=== PATIENT | male | born 1970 | race Caucasian/White ===

== ENCOUNTER 2019-09-08 15:27 | Observation (INO) ==
[2019-09-08] MEDS ORDERED: FAMOTIDINE 20MG IV PUSH 20 MG/5 ML SYR IV STA (15:50)
[2019-09-08] MEDS ORDERED: DEXAMETHASONE **PF** INJ 10 MG/ML VIAL IV ONE (15:50)
--- NOTE | 2019-09-08 15:50 | Emergency Department Note ---
History of Present Illness General Chief complaint: Allergic Reaction Stated complaint: ALLERGIC REACTION,DOC REFERRED Time Seen by Provider: 09/08/19 15:38 History of Present Illness Maximum Pain Intensity: 8 This is a 49-year-old male that presents to the emergency department via private vehicle with complaints of "allergic reaction, Dr. schroeder". The patient states that he was referred here by his family doctor over concern for lip swelling. Patient notes that he has been experiencing intermittent lip edema several times now and it usually goes away with Marian. He states that today was persistent. He also takes lisinopril but this is not new. He notes the only change in medication was discontinuing BuSpar as this was felt to have may be contributing to a fall he sustained a few weeks ago. He denies any other complaints at this time. No chest pain, shortness of breath, fevers or chills. He denies any rashes or trouble breathing. Trouble swallowing. He denies f eeling any swelling inside the mouth. No other changes in behavior, appetite or medicines. Home Medications Home Medications Medication Instructions Recorded Confirmed Type dextroamphetamine-amphetamine 30 30 mg PO BID tab 08/30/18 09/08/19 History mg tablet lisinopril 40 mg tablet 40 mg PO DAILY 08/30/18 09/08/19 History propranolol 60 mg capsule,24 60 mg PO BID cap 08/30/18 09/08/19 History hr,extended release tramadol 50 mg tablet 50 mg PO TID PRN tab 08/30/18 09/08/19 History sumatriptan succinate 50 mg tablet See Rx Instructions .ROUTE 03/20/19 09/08/19 Rx .COMPLEX #9 tablet clonazepam 2 mg tablet 1 mg PO TID PRN tab 04/19/19 09/08/19 History fexofenadine 180 mg tablet 180 mg PO HS PRN 04/19/19 09/08/19 History clomipramine 75 mg capsule 150 mg PO HS cap 07/11/19 09/08/19 History gabapentin 600 mg tablet 600 mg PO TID #90 tab 08/04/19 09/08/19 Rx bupropion HCl 150 mg PO BID 09/08/19 09/08/19 History clomipramine 50 mg PO BID 09/08/19 09/08/19 History esomeprazole magnesium [Nexium 20 mg PO DAILY 09/08/19 09/08/19 History 24HR] Allergies Allergy/AdvReac Type Severity Reaction Status Date / Time aspirin Allergy Severe Anaphylaxis Verified 09/08/19 16:50 diphenhydramine Allergy Severe Anaphylaxis Verified 09/08/19 16:50 [From Benadryl] buspirone [From BuSpar] AdvReac Severe Verified 09/08/19 16:50 anxiety Past Med/Surg History Medical History ADHD (attention deficit hyperactivity disorder) (Chronic) Anxiety (Chronic) Arthritis, rheumatoid (Chronic) Depression (Chronic) GERD (gastroesophageal reflux disease) (Chronic) HTN (hypertension) (Chronic) Lumbar pain (Chronic) Migraine headache (Chronic) OCD (obsessive compulsive disorder) (Chronic) Surgical History Hx of appendectomy (Chronic) Social History Preferred Language: [place] Communication Ability: Effective Visual Impairment: No Limitations Hearing Ability: Normal Brush Head Maker Required: No Beliefs That Will Affect Care: None marital status: single Current Living Situation: Family current occupational status: unemployed Feels Safe at Home: Yes Smoking Status: Former smoker Hx Alcohol Use: No Hx Substance Use: No Review of Systems A total of 10 systems reviewed and were otherwise negative Physical Exam Vital Signs Vital Signs - 24 hr 09/08/19 15:32 09/08/19 15:50 09/08/19 16:30 Temperature 37 C Temperature Source Oral Pulse Rate 88 79 Pulse Rate from SpO2 Sensor Pulse Rhythm Regular Pulse Strength Normal Respiratory Rate 18 17 Respiratory Effort / Characteristics Non-Labored Spontaneous Respiratory Depth Normal Respiratory Pattern Regular Blood Pressure 109/68 109/59 L Blood Pressure Mean 81 87 Blood Pressure Position Sitting Pulse Oximetry 94 Oxygen Delivery Method Room Air Room Air Sepsis Recent Fever Within 48 Hours No Sepsis New/Unexplained Change in Mental Status No Sepsis Action Taken by Nursing No Action Required 09/08/19 17:00 09/08/19 17:30 09/08/19 18:00 Temperature Temperature Source Pulse Rate 81 77 73 Pulse Rate from SpO2 Sensor Pulse Rhythm Pulse Strength Respiratory Rate 24 18 20 Respiratory Effort / Characteristics Respiratory Depth Respiratory Pattern Blood Pressure 105/61 96/59 L 103/66 Blood Pressure Mean 67 69 71 Blood Pressure Position Pulse Oximetry 92 92 92 Oxygen Delivery Method Room Air Room Air Sepsis Recent Fever Within 48 Hours Sepsis New/Unexplained Change in Mental Status Sepsis Action Taken by Nursing 09/08/19 18:30 09/08/19 19:00 09/08/19 19:30 Temperature Temperature Source Pulse Rate 75 73 72 Pulse Rate from SpO2 Sensor 78 73 71 Pulse Rhythm Pulse Strength Respiratory Rate 22 24 23 Respiratory Effort / Characteristics Respiratory Depth Respiratory Pattern Blood Pressure 126/72 112/74 116/77 Blood Pressure Mean 78 79 87 Blood Pressure Position Pulse Oximetry 91 93 93 Oxygen Delivery Method Room Air Room Air Room Air Sepsis Recent Fever Within 48 Hours Sepsis New/Unexplained Change in Mental Status Sepsis Action Taken by Nursing 09/08/19 20:00 09/08/19 20:30 09/08/19 21:00 Temperature Temperature Source Pulse Rate 73 84 88 Pulse Rate from SpO2 Sensor Pulse Rhythm Pulse Strength Respiratory Rate 16 27 H 22 Respiratory Effort / Characteristics Respiratory Depth Respiratory Pattern Blood Pressure 126/85 130/88 119/73 Blood Pressure Mean 98 102 86 Blood Pressure Position Pulse Oximetry 93 Oxygen Delivery Method Room Air Sepsis Recent Fever Within 48 Hours Sepsis New/Unexplained Change in Mental Status Sepsis Action Taken by Nursing 09/08/19 21:30 09/08/19 22:00 09/08/19 22:30 Temperature Temperature Source Pulse Rate 89 82 79 Pulse Rate from SpO2 Sensor Pulse Rhythm Pulse Strength Respiratory Rate 14 21 22 Respiratory Effort / Characteristics Respiratory Depth Respiratory Pattern Blood Pressure 109/71 100/58 L Blood Pressure Mean 75 76 Blood Pressure Position Pulse Oximetry 93 Oxygen Delivery Method Room Air Sepsis Recent Fever Within 48 Hours Sepsis New/Unexplained Change in Mental Status Sepsis Action Taken by Nursing 09/08/19 23:00 Temperature Temperature Source Pulse Rate 83 Pulse Rate from SpO2 Sensor Pulse Rhythm Pulse Strength Respiratory Rate 20 Respiratory Effort / Characteristics Respiratory Depth Respiratory Pattern Blood Pressure 101/57 L Blood Pressure Mean 71 Blood Pressure Position Pulse Oximetry Oxygen Delivery Method Sepsis Recent Fever Within 48 Hours Sepsis New/Unexplained Change in Mental Status Sepsis Action Taken by Nursing VITAL SIGNS - Vital signs and nursing notes were reviewed. Stable and afebrile. GENERAL -49-year-old male appearing his stated age who is in no acute distress. Communicates well with provider and answers questions appropriately. SKIN - Without rashes. There is some edema noted to the patient's left lower lip otherwise no rashes. No other areas of edema. HEAD - NC/AT. EYES - PERRL with EOMI bilaterally. Sclera anicteric. EARS - No deformities of external structures noted on gross examination bilaterally. NOSE - Midline and without cyanosis. No epistaxis or purulent drainage noted. MOUTH/OROPHARYNX - Without perioral cyanosis. Lip edema left lower lip. NECK - Neck with FROM. Supple to palpation. No nuchal rigidity. LUNGS - Chest wall symmetric without accessory muscle use, intercostals retractions, or central cyanosis. Normal vesicular breath sounds CTA B/L. No w heezes, rales, or rhonchi appreciated. CARDIAC - RRR with S1/S2. No murmur, rubs, or gallops appreciated. ABDOMEN - Abdominal contour normal. Without pulsations or visible masses. BS normoactive all four quadrants. No tenderness, palpable masses, hepatosplenomegaly, or ascites noted. EXTREMITIES - No clubbing or peripheral cyanosis. No pretibial edema present. +5/5 strength noted in UE/LE bilaterally. NEUROLOGIC - Cranial nerves II through XII grossly intact. PSYCH - A&O, and cooperates fully with examiner. Pt is very pleasant and interacts well with examiner. Course Administered Medications Discontinued Medications Dexamethasone Sodium Phosphate (Decadron Pf) 10 mg IV NOW ONE Stop: 09/08/19 15:51 Last Admin: 09/08/19 16:12 Dose: 10 mg Documented by: [id number] Famotidine (Pepcid 20mg Iv Push) 20 mg in 5 mls @ 2.5 mls/min IV NOW STA Stop: 09/08/19 15:51 Last Admin: 09/08/19 16:12 Dose: 2.5 mls/min Documented by: [id number] Sodium Chloride (Nss 1000ml) 1,000 mls @ 250 mls/hr IV .Q4H JOLENE Stop: 09/08/19 23:29 Last Admin: 09/08/19 19:25 Dose: 250 mls/hr Documented by: [id number] Medical Decision Making Laboratory Data Result diagrams: 09/08/19 16:06 09/08/19 16:06 Lab Results 09/08/19 09/08/19 09/08/19 Range/Units 16:06 16:06 16:06 WBC 10.08 (4.8-10.8) K/uL RBC 4.45 L (4.7-6.1) M/uL Hgb 13.7 L (14.0-18.0) g/dL Hct 40.3 L (42-52) % MCV 90.6 (80-100) fL MCH 30.8 (25-34) pg MCHC 34.0 (32-36) g/dL RDW Std Deviation 48.1 H (36.4-46.3) fL RDW Coeff of Charlie 14.5 (11.5-14.5) % Plt Count 337 (130-400) K/uL MPV 9.8 (7.4-10.4) fL Immature Gran % (Auto) 0.5 % Neut % (Auto) 59.2 % Lymph % (Auto) 28.0 % Coleman % (Auto) 9.8 % Eos % (Auto) 2.5 % Baso % (Auto) 0.0 % Immature Gran # (Auto) 0.05 H (0.00-0.02) K/uL Neut # (Auto) 5.97 (1.4-6.5) K/uL Lymph # (Auto) 2.82 (1.2-3.4) K/uL Coleman # (Auto) 0.99 H (0.11-0.59) K/uL Eos # (Auto) 0.25 (0-0.5) K/uL Baso # (Auto) 0.00 (0-0.2) K/uL Sodium 134 L (136-145) mmol/L Potassium 4.2 (3.5-5.1) mmol/L Chloride 103 (98-107) mmol/L Carbon Dioxide 25 (21-32) mmol/L Anion Gap 6.0 (3-11) BUN 37 H (7-18) mg/dl Creatinine 4.14 H (0.6-1.4) mg/dl Est Cr Clr Drug Dosing 25.7 ml/min Est GFR ( Amer) 18.4 Est GFR (Non-Af Amer) 15.9 BUN/Creatinine Ratio 9.0 L (10-20) Glucose 93 (70-99) mg/dl Calcium 8.8 (8.5-10.1) mg/dl Total Bilirubin 0.5 (0.2-1) mg/dl AST 14 L (15-37) U/L ALT 28 (12-78) U/L Alkaline Phosphatase 91 (45-117) U/L Total Creatine Kinase 169 (39-308) U/L Total Protein 7.4 (6.4-8.2) gm/dl Albumin 3.6 (3.4-5.0) gm/dl Globulin 3.8 (2.5-4.0) gm/dl Albumin/Globulin Ratio 0.9 (0.9-2) MDM Narrative Patient was seen and evaluated as above in room 11. Review was performed of n ursing notes and vital signs. After obtaining a thorough history and physical examination the above work up was performed. He presents to us today with allergic reaction. This is likely angioedema secondary to lisinopril use. No other changes that would contribute to this have been identified. IV access was established. I did elect to obtain baseline labs given the presentation here today. There is no leukocytosis. Mild anemia noted. Patient does have significant elevation of his creatinine and BUN and at this time the exact cause is unclear. The creatinine is 4.14 with BUN of 37. I do believe that further evaluation and management in the inpatient setting is warranted. Patient was in agreement. Case discussed with the attending physician as well as the hospitalist. Please refer to further documentation regarding his stay. GCS: 15 In the evaluation and treatment of this patient the following differential diagnoses were entertained: Angioedema, anaphylaxis, Ludwigs angina, cellulitis, ALEXIS, nephrotoxic agents, urinary retention, dehydration, among others. Impression & Plan Angioedema, ALEXIS (acute kidney injury) Discharge Plan Visit Data Chief Complaint: Allergic Reaction Stated Complaint: ALLERGIC REACTION,DOC REFERRED ED Provider: Wayne Gillespie ED Midlevel Provider: Antonio Neves Discharge Problem: Angioedema, ALEXIS (acute kidney injury) Patient Disposition: Admitted As Inpatient Condition: Good Discharge Instructions Interventions: ED Discharge Assessment Last Done: 09/08/19 23:31 Forms Stand Alone Forms: My Transfer To Prescriptions Prescriptions: No Action dextroamphetamine-amphetamine [Adderall] 30 mg tablet 30 mg PO BID RF: 0 tramadol 50 mg tablet 50 mg PO TID PRN (Reason: Pain) RF: 0 propranolol 60 mg capsule,extended release 24 hr 60 mg PO BID RF: 0 lisinopril 40 mg tablet 40 mg PO DAILY RF: 0 clonazepam 2 mg tablet 1 mg PO TID PRN (Reason: Unknown) RF: 0 fexofenadine [Allergy Relief (fexofenadine)] 180 mg tablet 180 mg PO HS PRN (Reason: Itching) RF: 0 clomipramine 75 mg capsule 150 mg PO HS RF: 0 gabapentin 600 mg tablet 600 mg PO TID Qty: 90 RF: 2 sumatriptan succinate 50 mg tablet See Rx Instructions .ROUTE .COMPLEX Qty: 9 RF: 5 bupropion HCl 100 mg tablet 150 mg PO BID RF: 0 clomipramine 50 mg capsule 50 mg PO BID RF: 0 Nexium 24HR 20 mg Tablet,Delayed Release (Dr/Ec) 20 mg PO DAILY RF: 0 Referrals Referrals: Kaushik Bower [Primary Care Provider] -
[2019-09-08] MEDS ORDERED: SODIUM CHLORIDE 0.9% 1000ML 1,000 ML IV SCH ×2 (16:00→19:30)
[2019-09-08 16:21] LABS: Eosinophils # (auto) 0.25 K/uL (0-0.5); Eosinophils % (auto) 2.5 %; Hematocrit (blood only) 40.3 % (42-52); Hemoglobin 13.7 g/dL (14.0-18.0); Immature Granulocytes # (auto) 0.05 K/uL (0.00-0.02); Immature Granulocytes % (auto) 0.5 %; Lymphocytes # (auto) 2.82 K/uL (1.2-3.4); Mean Corpuscular Hemoglobin 30.8 pg (25-34); Mean Corpuscular Volume 90.6 fL (80-100); Mean Platelet Volume 9.8 fL (7.4-10.4); Monocytes # (auto) 0.99 K/uL (0.11-0.59); Monocytes % (auto) 9.8 %; Neutrophils # (auto) 5.97 K/uL (1.4-6.5); Neutrophils % (auto) 59.2 %; Platelet Count 337 K/uL (130-400); RDW Coefficient of Variation 14.5 % (11.5-14.5); RDW Standard Deviation 48.1 fL (36.4-46.3); Red Blood Count 4.45 M/uL (4.7-6.1); White Blood Count 10.08 K/uL (4.8-10.8)
[2019-09-08 16:40] LABS: Albumin Level 3.6 gm/dl (3.4-5.0); Calcium 8.8 mg/dl (8.5-10.1); Creatinine Clr Calc Pharmacy 25.7 ml/min; Est GFR (African American) 18.4; Est GFR (Non-African American) 15.9; Potassium 4.2 mmol/L (3.5-5.1)
[2019-09-08 16:43] LABS: Albumin Globulin Ratio 0.9 (0.9-2); Bilirubin,Total 0.5 mg/dl (0.2-1); Globulin 3.8 gm/dl (2.5-4.0); Total Protein 7.4 gm/dl (6.4-8.2)
--- NOTE | 2019-09-08 21:29 | History & Physical Report ---
Date of Service September 08, 2019 Assessment & Plan (1) Angioedema: Gustavo is a 49yo M who presents for evaluation of lip angioedema. 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 Also found to have ALEXIS of unclear etiology. Lip Angioedema-resolved -Likely 2/2 lisinopril use . No other clear triggers or new exposures - improved with IV Dexamethasone/Famotidine in ED -cont PO Prednisone 40 mg, will likely only need short course as swelling already resolved -cont IV Pepcid 20 mg BID, PO Hydroxyzine 25 mg TID (monitor as pt has allergy to benadryl) - will discontinue lisinopril ALEXIS -unclear etiology, will initiate additional workup as below -cont IVF with NSS at 250 ml/hr -UA and FENa ordered to help to distinguish prerenal ALEXIS from ATN -track UOP. Pt denies any decline in urine volume that would suggest obstruction -avoid nephrotoxic agents HTN -stop lisinopril 40 mg. Cont propranolol ER 60 mg BID -will not start new antihypertensive for now as BP's stable. If hypertensive moving forward consider starting a different class of antihypertensives ADHD/OCD/Anxiety/Depression -cont buproprion, clomipramine, clonazepam, dextroamphetamine-amphetamine GERD -cont esomeprazole Thoracic Facet Syndrome -cont gabapentin 600 mg TID, holding tramadol 50 mg TID prn (Patient does report a history of a seizure in the past, so will recommend not continuing on d/c or weaning off) -intra-articular facet joint injections performed on 07/11/2019 FEN/GI: Regular. NSS DVT Prophylaxis: Low Risk by admission calculator. SCDs, ambulation Full Code Dispo: Med Surg History of Present Illness Chief Complaint: angioedema Primary Care Provider: Kaushik Bower 49 yo M with PMH ADHD, OCD, Anxiety, RA, Depression, GERD, HTN, Thoracic Facet Syndrome presents from outpatient clinic with concern of lip swelling. This particular episode started yesterday evening. This has happened on previous occurrences over the past year about once every other week and have always been mild in nature. Usually resolved with 1/2 tab of marian. Pt took marian last evening and woke up this AM with continued lip swelling on only the right half of upper and lower lips. Took another marian with resolution of upper lip swelling but persistent lower lip swelling this time on the left side only. "Like a marble." He has a history of hives on flexor surfaces 2/2 benadryl. Only listed allergies to ASA and benadryl. Pt does take Lisinopril for past 10 yrs. Denies wheezing, difficulty breathing, throat swelling. He has had several months of dry cough. No other new medications or dosage changes recently. Pt with no other acute concerns or complaints. Labs: Na 134, BUN 37, Cr 4.14 ER Course: NSS, IV Famotidine 20 mg, IV Dexamethasone 10mg Family Hx: Mother-DI, HTN; Father- HTN, PA Social: Fomer Smoker, Current chewing tobacco. Alcohol- quit 6 yrs ago. No illicit drug use Surgical Hx: Appendectomy Allergies Allergy/AdvReac Type Severity Reaction Status Date / Time aspirin Allergy Severe Anaphylaxis Verified 09/08/19 16:50 diphenhydramine Allergy Severe Anaphylaxis Verified 09/08/19 16:50 [From Benadryl] buspirone [From BuSpar] AdvReac Severe Verified 09/08/19 16:50 anxiety Home Medications Home Medications Medication Instructions Recorded Confirmed Type lisinopril 40 mg tablet 40 mg PO DAILY 08/30/18 09/08/19 History propranolol 60 mg capsule,24 60 mg PO BID cap 08/30/18 09/08/19 History hr,extended release tramadol 50 mg tablet 50 mg PO TID PRN tab 08/30/18 09/08/19 History sumatriptan succinate 50 mg tablet See Rx Instructions .ROUTE 03/20/19 09/08/19 Rx .COMPLEX #9 tablet clonazepam 2 mg tablet 1 mg PO TID PRN tab 04/19/19 09/08/19 History fexofenadine 180 mg tablet 180 mg PO HS PRN 04/19/19 09/08/19 History clomipramine 75 mg capsule 150 mg PO HS cap 07/11/19 09/08/19 History gabapentin 600 mg tablet 600 mg PO TID #90 tab 08/04/19 09/08/19 Rx bupropion HCl 150 mg PO BID 09/08/19 09/08/19 History clomipramine 50 mg PO BID 09/08/19 09/08/19 History esomeprazole magnesium [Nexium 20 mg PO DAILY 09/08/19 09/08/19 History 24HR] dextroamphetamine-amphetamine 30 mg PO QAM 09/09/19 09/09/19 History dextroamphetamine-amphetamine See Rx Instructions .ROUTE .COMPLEX 09/09/19 09/09/19 History Past Med/Surg History Medical History ADHD (attention deficit hyperactivity disorder) (Chronic) Anxiety (Chronic) Arthritis, rheumatoid (Chronic) Depression (Chronic) GERD (gastroesophageal reflux disease) (Chronic) HTN (hypertension) (Chronic) Lumbar pain (Chronic) Migraine headache (Chronic) OCD (obsessive compulsive disorder) (Chronic) Surgical History Hx of appendectomy (Chronic) Social History Preferred Language: [place]i Communication Ability: Effective Visual Impairment: No Limitations Hearing Ability: Normal 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 Beliefs That Will Affect Care: None marital status: single Current Living Situation: Parent Current Living Situation Comment: Lives at parents home current occupational status: unemployed Other Information That Helps Us Care for You: No Feels Safe at Home: Yes Safety Concerns: Feels Safe At This Time Smoking Status: Former smoker Do You Dip or Chew Tobacco: Yes ; Second Hand Exposure: No ; Tobacco Cessation Education Requested by Patient: No Hx Alcohol Use: Yes Alcohol type: beer Hx Substance Use: No Review of Systems Review of Systems: All systems reviewed & are unremarkable except as noted in HPI & below Physical Exam Constitutional: WD/WN, vitals as above Eyes: PERRL, conjunctivae normal, anicteric sclerae ENMT: external ear and nose normal, oropharynx normal Mouth: no lip abnormality No tongue swelling Respiratory: normal respiratory effort, lungs clear to auscultation Cardiovascular: RRR, no murmur, no edema Gastrointestinal (Abdomen): normal bowel sounds, soft, nontender, no hepatosplenomegaly Skin: no rashes, warm and dry (no hives) Psychiatric: A+Ox3, euthymic affect Results & Data Vital Signs (Past 12 Hours) Vital Signs Temp Pulse Resp BP Pulse Ox 09/08/19 20:00 73 16 126/85 93 09/08/19 19:30 72 23 116/77 93 09/08/19 19:00 73 24 112/74 93 09/08/19 18:30 75 22 126/72 91 09/08/19 18:00 73 20 103/66 92 09/08/19 17:30 77 18 96/59 L 92 09/08/19 17:00 81 24 105/61 92 09/08/19 16:30 79 17 109/59 L 09/08/19 15:32 37 C 88 18 109/68 94 Laboratory Results Laboratory Results - last 24 hr 09/08/19 09/08/19 09/08/19 16:06 16:06 16:06 WBC 10.08 RBC 4.45 L Hgb 13.7 L Hct 40.3 L MCV 90.6 MCH 30.8 MCHC 34.0 RDW Std Deviation 48.1 H RDW Coeff of Charlie 14.5 Plt Count 337 MPV 9.8 Immature Gran % (Auto) 0.5 Neut % (Auto) 59.2 Lymph % (Auto) 28.0 Haakon % (Auto) 9.8 Eos % (Auto) 2.5 Baso % (Auto) 0.0 Immature Gran # (Auto) 0.05 H Neut # (Auto) 5.97 Lymph # (Auto) 2.82 Haakon # (Auto) 0.99 H Eos # (Auto) 0.25 Baso # (Auto) 0.00 Sodium 134 L Potassium 4.2 Chloride 103 Carbon Dioxide 25 Anion Gap 6.0 BUN 37 H Creatinine 4.14 H Est Cr Clr Drug Dosing 25.7 Est GFR ( Amer) 18.4 Est GFR (Non-Af Amer) 15.9 BUN/Creatinine Ratio 9.0 L Glucose 93 Calcium 8.8 Total Bilirubin 0.5 AST 14 L ALT 28 Alkaline Phosphatase 91 Total Creatine Kinase 169 Total Protein 7.4 Albumin 3.6 Globulin 3.8 Albumin/Globulin Ratio 0.9 Medications Administered Current Inpatient Medications Sodium Chloride (Nss 1000ml) 1,000 mls @ 250 mls/hr IV .Q4H JOLENE Stop: 09/08/19 23:29 Last Admin: 09/08/19 19:25 Dose: 250 mls/hr Documented by: Code Status & VTE Plan Code Status FULL Supervising Physician Co-Signing Physician Notes Patient seen and examined, chart reviewed, case discussed with Dr. Maddox and I agree with his assessment and plan as documented above. Briefly, patient is a 49-year-old male presents with angioedema, found to have ALEXIS. Patient with longstanding history of allergic reactions, states that as a child he would often have hives and itching. He was previously on allergy shots. He has had lip swelling multiple times before which typically resolves with Marian. However, swelling was more pronounced and above this time and did not resolve which prompted him to come to the ER On exam he is afebrile, hemodynamically stable, no acute distress. Angioedema has completely resolved. No swelling of lips/tongue/oropharynx or palate Abdomen is soft, nontender, nondistended Remainder of exam unremarkable Labs and images reviewed and significant for normochromic normocytic anemia with Hgb = 13.7, HCT = 40.3 Sodium = 134, BUN elevated at 37, creatinine elevated at 4.14 Assessment/[id number] male presenting with angioedema, on lisinopril therapy. Question CIRO inhibitor induced Will discontinue lisinopril Continue steroids and Pepcid overnight Hydroxyzine in place of Benadryl as patient states he is allergic to Benadryl If patient's symptoms recur while off lisinopril he may want to pursue additional work-up, allergy testing/testing for familial angioedema Remainder of plan as above Resident Activity Tracking Resident Involvement: Resident Care Provided Care Provided: Adult Hospital Medicine
[2019-09-09] MEDS ORDERED: clonazePAM 1 MG TAB PO PRN (00:06)
[2019-09-09] MEDS ORDERED: ACETAMINOPHEN 325 MG TAB PO PRN (00:06)
[2019-09-09] MEDS ORDERED: ONDANSETRON INJ 2 MG/ML 2 ML VIAL IV PRN (00:06)
[2019-09-09] MEDS ORDERED: TRAMADOL HCL 50 MG TABLET PO PRN (00:06)
[2019-09-09] MEDS ORDERED: ALUMINUM/MAGNESIUM SUSP 30 ML UDC PO PRN (00:06)
--- NOTE | 2019-09-09 03:18 | Billing Data ---
Date of Service September 09, 2019 Coding Level of Care Code 20331 Initial Inpt Care Lvl 3
[2019-09-09] MEDS: SODIUM CHLORIDE 0.9% 1000ML 1,000 ML IV SCH ×2 (04:48→13:27)
[2019-09-09 05:47] LABS: Eosinophils # (auto) 0.01 K/uL (0-0.5); Eosinophils % (auto) 0.1 %; Hematocrit (blood only) 38.8 % (42-52); Hemoglobin 12.9 g/dL (14.0-18.0); Immature Granulocytes # (auto) 0.05 K/uL (0.00-0.02); Immature Granulocytes % (auto) 0.7 %; Lymphocytes # (auto) 1.51 K/uL (1.2-3.4); Lymphocytes % (auto) 20.1 %; Mean Corpuscular Hemoglobin 29.9 pg (25-34); Mean Corpuscular Hgb Conc 33.2 g/dL (32-36); Mean Corpuscular Volume 89.8 fL (80-100); Mean Platelet Volume 10.2 fL (7.4-10.4); Monocytes # (auto) 0.21 K/uL (0.11-0.59); Monocytes % (auto) 2.8 %; Neutrophils # (auto) 5.73 K/uL (1.4-6.5); Neutrophils % (auto) 76.3 %; Platelet Count 304 K/uL (130-400); RDW Coefficient of Variation 14.3 % (11.5-14.5); Red Blood Count 4.32 M/uL (4.7-6.1); White Blood Count 7.51 K/uL (4.8-10.8)
[2019-09-09 06:13] LABS: BUN Creatinine Ratio 14.2 (10-20); Calcium 9.1 mg/dl (8.5-10.1); Creatinine Clr Calc Pharmacy 47.3 ml/min; Est GFR (African American) 38.5; Est GFR (Non-African American) 33.2; Potassium 4.3 mmol/L (3.5-5.1)
[2019-09-09 06:19] LABS: Appearance Urine Clear (Clear); Bilirubin Urine Negative (Negative); Blood Urine Negative (Negative); Color Urine Yellow; Glucose Urine UA Negative (Negative); Ketones Urine Negative (Negative); Leukocyte Esterase Urine Negative (Negative); Nitrite Urine Negative (Negative); Protein Urine Negative (Negative); Specific Gravity Urine 1.016 (1.000-1.030); Urobilinogen Urine Negative (Negative)
[2019-09-09] MEDS ORDERED: DEXTROAMPHETAMINE/AMPHETAMINE ER 10 MG CAP PO SCH (07:00)
[2019-09-09] MEDS: GABAPENTIN 600 MG TAB PO SCH ×2 (08:34→13:28)
[2019-09-09] MEDS ORDERED: FAMOTIDINE 20 MG in SYRINGE 3 ML IV SCH (09:00)
[2019-09-09] MEDS ORDERED: PROPRANOLOL HCL 60 MG LA CAP PO SCH (09:00)
[2019-09-09] MEDS ORDERED: predniSONE 20 MG TAB PO SCH (09:00)
[2019-09-09] MEDS ORDERED: buPROPion HCl 75 MG TABLET PO SCH (09:00)
[2019-09-09] MEDS ORDERED: PANTOprazole 40 MG TAB PO SCH (09:00)
[2019-09-09] MEDS ORDERED: AMPHETAMINE ASP/SULF/DEXTRAMPH 10 MG TAB PO SCH (14:00)
[2019-09-09 15:29] LABS: BUN Creatinine Ratio 14.8 (10-20); Calcium 9.4 mg/dl (8.5-10.1); Creatinine Clr Calc Pharmacy 64.5 ml/min; Est GFR (African American) 56.1; Est GFR (Non-African American) 48.4; Potassium 4.6 mmol/L (3.5-5.1)
--- NOTE | 2019-09-09 15:52 | Discharge Summary ---
Date of Service September 09, 2019 Admission HPI Per Admitting Provider 49 yo M with PMH ADHD, OCD, Anxiety, RA, Depression, GERD, HTN, Thoracic Facet Syndrome presents from outpatient clinic with concern of lip swelling. This particular episode started yesterday evening. This has happened on previous occurrences over the past year about once every other week and have always been mild in nature. Usually resolved with 1/2 tab of mehran. Pt took mehran last evening and woke up this AM with continued lip swelling on only the right half of upper and lower lips. Took another mehran with resolution of upper lip swelling but persistent lower lip swelling this time on the left side only. "Like a marble." He has a history of hives on flexor surfaces 2/2 benadryl. Only listed allergies to ASA and benadryl. Pt does take Lisinopril for past 10 yrs. Denies wheezing, difficulty breathing, throat swelling. He has had several months of dry cough. No other new medications or dosage changes recently. Pt with no other acute concerns or complaints. Labs: Na 134, BUN 37, Cr 4.14 ER Course: NSS, IV Famotidine 20 mg, IV Dexamethasone 10mg Family Hx: Mother-DI, HTN; Father- HTN, [place] Social: F[place] Smoker, Current chewing tobacco. Alcohol- quit 6 yrs ago. No illicit drug use Surgical Hx: Appendectomy Admission Exam Per Admitting Provider Constitutional: WD/WN, vitals as above Eyes: PERRL, conjunctivae normal, anicteric sclerae ENMT: external ear and nose normal, oropharynx normal Mouth: no lip abnormality No tongue swelling Respiratory: normal respiratory effort, lungs clear to auscultation Cardiovascular: RRR, no murmur, no edema Gastrointestinal (Abdomen): normal bowel sounds, soft, nontender, no hepatosplenomegaly Skin: no rashes, warm and dry (no hives) Psychiatric: A+Ox3, euthymic affect Principal Diagnosis Angioedema, ALEXIS Discharge Exam General: Alert, oriented. No acute distress Skin: No noted rashes or bruises Psych: Appropriate mood and affect Neuro: No gross deficits HEENT: NC/AT, no noted swelling of tongue or lips Chest: Nontender to palpation. CV: RRR, Normal s1, s2. No murmurs appreciated Resp: Breath sounds clear bilaterally, no increased effort of breathing. No crackles/rhonchi/rales. Abdomen: Soft, nontender, nondistended. No guarding. No organomegaly apprecia radha. Extremities: No edema in lower extremities bilaterally. Discharge Data Allergies Allergy/AdvReac Type Severity Reaction Status Date / Time aspirin Allergy Severe Anaphylaxis Verified 09/08/19 16:50 diphenhydramine Allergy Severe Anaphylaxis Verified 09/08/19 16:50 [From Benadryl] buspirone [From BuSpar] AdvReac Severe Verified 09/08/19 16:50 anxiety Consultations 09/08/19 19:18 ED Decision to Admit Stat Hospital Course (1) Angioedema: Gustavo is a 49yo M with PMHx significant for HTN treated with lisinopril, GERD, thoracic facet syndrome who presented for evaluation of lip angioedema and an ALEXIS with Cr of 4.14 on admission. Admitted on September 08, 2019 and discharged on September 09, 2019. Lip Angioedema-resolved -Likely 2/2 lisinopril use . No other clear triggers or new exposures - improved with IV Dexamethasone/Famotidine in ED -transitioned to PO Prednisone 40 mg and discharged with taper. -IV Pepcid 20 mg BID, PO Hydroxyzine 25 mg TID (as pt has allergy to benadryl) while hospitalized. Discontinued on discharge. -DISCONTINUED lisinopril. BP was controlled with home propranolol 60mg BID while hospitalized so will defer to PCP for new antihypertensive class switch/addition if needed. -Can also consider outpatient sleep study for WADE as potential cause of HTN requiring 2 medications. ALEXIS -unclear etiology, but appears to be pre-renal since marked improvement since admission -Pt and state he has lots of caffeine intake with daily energy drinks. Counseled to discontinue. -Cr decreased from 4.14 to 1.65 on discharge -Treated with IVF with NSS at 125 ml/hr -UA unremarkable -avoid nephrotoxic agents -PCP followup for Cr function strongly recommended within the next week. HTN -lisinopril 40 mg DISCONTINUED as likely angioedema cause. -Cont propranolol ER 60 mg BID -will not start new antihypertensive for now as BP's stable. -as above, will defer to PCP for new antihypertensive class switch/addition if needed. -Can also consider outpatient sleep study for WADE as potential cause of HTN requiring 2 medications. ADHD/OCD/Anxiety/Depression -cont buproprion, clomipramine, clonazepam, dextroamphetamine-amphetamine GERD -cont esomeprazole Thoracic Facet Syndrome -cont gabapentin 600 mg TID, holding tramadol 50 mg TID prn (Patient does report a history of a seizure in the past, so will recommend not continuing on d/c or weaning off, also with buproprion above) -intra-articular facet joint injections performed on 07/11/2019 Total Time Total Time Spent Total Time Spent (In Minutes): See attending attestation Discharge Plan Discharge Items Patient Disposition: Home - Self-Care Reason For Visit: ANGIOEDEMA Discharge Diagnosis: Angioedema Condition on Discharge: Good Activity: Per Instructions section Non-emergency contact: Primary Care Provider Call non-emergency contact if: your symptoms worsen Follow-up/Referrals: Kaushik Bower [Primary Care Provider] - Diet: Regular Addtl Attending Provider Instructions: You were admitted due to swelling likely secondary to your use of the medication lisinopril. -Please STOP taking the medication Lisinopril. -You can continue taking the medication propranolol to help with your blood pressure but we recommend following up with your PCP so they can determine what additional blood pressure medication from a different class you should continue on. -Please continue to take Prednisone 40mg (two pills) for the next TWO days, and then 20mg (1 pill) for the next THREE days. -Please followup with your PCP Dr. Bower for continued evaluation of your kidney function within the next week after discharge. -Please try to stay hydrated and drink as much water as you can. You want your urine as clear yellow as possible. Should your symptoms return or you suddenly develop trouble breathing, we ask that you return emergently to the emergency department Pending Studies at Discharge: No Stand-Alone Forms: My [facility] [employer], Smoking Cessation Medications and DC Order Prescriptions: New prednisone 20 mg Tablet 20 mg PO QAM Qty: 7 RF: 0 propranolol 60 mg Capsule,Extended Release 24 Hr 60 mg PO BID 14 Days Qty: 28 RF: 0 Continued tramadol 50 mg tablet 50 mg PO TID PRN (Reason: Pain) RF: 0 propranolol 60 mg capsule,extended release 24 hr 60 mg PO BID RF: 0 clonazepam 2 mg tablet 1 mg PO TID PRN (Reason: Unknown) RF: 0 fexofenadine [Allergy Relief (fexofenadine)] 180 mg tablet 180 mg PO HS PRN (Reason: Itching) RF: 0 clomipramine 75 mg capsule 150 mg PO HS RF: 0 gabapentin 600 mg tablet 600 mg PO TID Qty: 90 RF: 2 sumatriptan succinate 50 mg tablet See Rx Instructions .ROUTE .COMPLEX Qty: 9 RF: 5 bupropion HCl 100 mg tablet 150 mg PO BID RF: 0 clomipramine 50 mg capsule 50 mg PO BID RF: 0 Nexium 24HR 20 mg Tablet,Delayed Release (Dr/Ec) 20 mg PO DAILY RF: 0 dextroamphetamine-amphetamine 30 mg tablet See Rx Instructions .ROUTE .COMPLEX RF: 0 dextroamphetamine-amphetamine 30 mg capsule,extended release 24hr 30 mg PO QAM RF: 0 Discontinued lisinopril 40 mg tablet 40 mg PO DAILY RF: 0 Discharge Orders: Discharge Order (Routine); Ordered 09/09/19 Ordered By: Elaine Lopez/Other Patient Handouts: First Aid Allergic React, ED Angioedema Admission Data Admit Date/Time: 09/08/19 22:31 Attending Provider: Lori Silva Admit Provider: Jose Maddox Primary Care Provider: Kaushik Bower Other Providers: Georgina Weller Resident Activity Tracking Resident Involvement: Resident Care Provided Care Provided: Adult Hospital Medicine
[2019-09-09] MEDS ORDERED: CLOMIPRAMINE PO SCH (21:00)
== END 2019-09-09 16:29 | disposition home or self-care (01) ==
LOC: ED 15:27 → SUATTDRO 22:31 → INTOOBSV 22:31 → 3W 22:31

== ENCOUNTER 2025-01-16 15:00 | Inpatient (IN) ==
[2025-01-16] MEDS ORDERED: NALOXONE HCL 2 MG in SODIUM CHLORIDE 0.9% 1,000 ML IV STA (15:26)
[2025-01-16] MEDS: SODIUM CHLORIDE 0.9% 500 ML IV ONE (15:57)
[2025-01-16 16:18] LABS: Base Excess VBG 5.6 mEq/L; HCO3 VBG 31 mmol/L; Oxygen Saturation VBG 90.9 %; PCO2 VBG 45 mmHg (38-50); PO2 VBG 57 mmHg; pH VBG 7.44 (7.36-7.41)
[2025-01-16] MEDS: NALOXONE HCL 0.4 MG/1 ML VIAL/CARP IV ONE (16:19)
[2025-01-16 16:36] LABS: Hematocrit (blood only) 35.6 % (42.0-52.0); Hemoglobin 11.6 g/dl (14.0-18.0); Immature Granulocytes # (auto) 0.06 K/uL (0.01-0.20); Immature Granulocytes % (auto) 0.7 %; Mean Corpuscular Hemoglobin 26.5 pg (25.0-34.0); Mean Corpuscular Volume 81.3 fL (80.0-100.0); Platelet Count 240 K/uL (130-400); RDW Standard Deviation 41.8 fL (36.4-46.3); Red Blood Count 4.38 M/uL (4.70-6.10); White Blood Count 8.19 K/ul (4.8-10.8)
[2025-01-16 16:47] LABS: Appearance Urine Clear (Clear); Bacteria Urine Automated None Seen (None Seen); Cast Urine Automated 0-2 /lpf (0-2); Epithelial Cell Urine Auto 0-2 /hpf (0-2); Glucose Urine UA Negative (Negative); RBC Urine Automated 0-2 /hpf (0-2); WBC Urine Automated 0-5 /hpf (0-5)
[2025-01-16 16:49] LABS: Anion Gap 8.0 (3-11); Blood Urea Nitrogen 18.0 mg/dl (6-23); Calcium 8.8 mg/dl (8.6-10.3); Carbon Dioxide 28.0 mmol/L (21-32); Chloride 96.0 mmol/L (98-107); Creatinine Clr Calc Pharmacy 94.0 ml/min; Glucose 74.0 mg/dl (70-99(Fasting)); Potassium 3.8 mmol/L (3.5-5.1); Sodium 132.0 mmol/L (136-145)
--- NOTE | 2025-01-16 16:52 | XRay Report ---
Chest radiograph, one view History: AMS Comparison: None Findings: Single AP view of the chest performed. Bibasilar patchy opacities seen. Pleural effusion. No pneumothorax. The cardiomediastinal silhouette is within normal limits. Normal pulmonary vascularity. No evidence for lymphadenopathy. No visualized bony or soft tissue abnormality. Impression: Bibasilar patchy opacities are suspicious for infection Electronically signed by Kirk Zamora 01-16-2025 4:52 PM
[2025-01-16 17:01] LABS: INR 1.0 (0.9-1.1); Partial Thromboplastin Time 39 Seconds (21-31); Prothrombin Time 10.7 Seconds (9.0-12.0)
[2025-01-16 17:09] LABS: Amphetamines+Metham, Urine Neg (Neg); MDMA (Ecstacy), Urine Pos (Neg); Marijuana, Urine Neg (Neg)
[2025-01-16] MEDS: AZITHROMYCIN 250 MG TAB PO ONE (17:11)
[2025-01-16] MEDS: cefTRIAXone SODIUM 2,000 MG/50 ML BAG IV STA (17:11)
[2025-01-16] MEDS: OPTIRAY 320 125ml IV ONE (17:45)
--- NOTE | 2025-01-16 17:59 | CT Scan Report ---
Clinical History: Altered mental status. Technique: Axial computed tomography images were obtained of the brain from the vertex to the skull base without intravenous contrast. Findings: There is no sign of intracranial hemorrhage. There is normal moore-white matter differentiation with no sign of acute or old infarction. No midline shift or other form of herniation is identified. There is no hydrocephalus. No obvious mass lesion is seen on this noncontrast examination. There is mild left sphenoid sinus mucosal thickening. The mastoid air cells appear clear Impression: Unremarkable noncontrast CT of the brain Electronically signed by Yuri Fernández 01-16-2025 5:58 PM
--- NOTE | 2025-01-16 18:04 | CT Scan Report ---
Clinical history: Chest pain Technique: Axial computed tomography images were obtained of the chest after the administration of intravenous contrast according to the CT angiogram protocol Findings: There is no definite sign of pulmonary embolism. Evaluation of some of the peripheral pulmonary arteries is limited by motion artifact and suboptimal contrast opacification There are multifocal alveolar and nodular infiltrates in the bilateral lower lobes and to a lesser extent the right middle lobe and lingula, consistent with pneumonia. There is no pleural effusion or pneumothorax. There is peripheral bronchial is plaque in both lower lobes There are multiple small mediastinal and hilar lymph nodes. There is no overt mediastinal, hilar, or axillary adenopathy. The thoracic aorta appears unremarkable with no sign of aneurysm or dissection. There is no pericardial effusion The spleen is mildly enlarged measuring 14 cm. There is a small hiatal hernia. No fracture is seen. No focal osseous lesion is evident Impression: 1. No definite sign of pulmonary embolism. Evaluation of some of the peripheral pulmonary arteries was suboptimal and small peripheral lower lobe emboli cannot be excluded 2. Bilateral pneumonia 3. Small hiatal hernia 4. Mild splenomegaly ACT 112: Positive. There are findings on this exam that require communication between the performing entity and the patient following Patient Test Result Information Act ([place] ACT 112) guidelines. Electronically signed by Yuri Fernández 01-16-2025 6:02 PM
--- NOTE | 2025-01-16 19:11 | History & Physical Report ---
Date of Service January 16, 2025 Assessment & Plan (1) Bilateral pneumonia: Plan: Metabolic encephalopathy due to bilateral pneumonia Mentation improved and at/near baseline at time of assessment CTAchest: Bilateral pneumonia. No PE seen, small/distal subsegmental 90 newly ruled out due to motion artifact No leukocytosis VBG 7.44/45/57/31 Continue Rocephin/azithromycin Sputum culture pending EKG: Normal sinus rhythm, incomplete left bundle branch block - ? Element of narcosis. only takes tramadol at home, did have pinpoint pupils on ER assessment with improvement in pupillary response and mentation post narcan. Denies other recreational drug and prescription opioid use. History of seizure History of provoked generalized seizures. 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 Low suspicion for seizure leading to aspiration/pneumonia. Does not appear postictal at the bedside Is on bupropion which can lower seizure threshold, known and follows with neurology. - Switched clonazepam to ativan ~1 year ago. Continued Continue Keppra 500 mg twice daily Seizure activity History of migraines Continue verapamil No migraine on admitting exam History of asthma Some wheezing on admission. Only uses a rescue inhaler which she needs rarely although did use once in the last week Mild acute exacerbation with pneumonia on admission Continue albuterol as needed Prednisone burst x 5 days ordered Depression/OCD/anxiety Continue clomipramine 150 mg at bedtime, 50mg BID. - Wellbutrin 150mg BID continued Continue BuSpar - Ativan 2mg TID continued. Not tapered at this time due to regular use and risk of seizure. Hypertension Continue verapamil, propranolol ADHD Hold dextroamphetamineamphetamine GERD Continue PPI daily, convert to Protonix while admitted Lumbar facet syndrome Postop pain management, as needed L4/L5/S1 blocks. Last seen by pain management 12/26/2024 - Pain adequately controlled @ admission DVT PPx: Lovenox Diet: Regular Dispo: M/T Code: Full (2) OCD (obsessive compulsive disorder): (3) ADHD (attention deficit hyperactivity disorder): (4) HTN (hypertension): (5) GERD (gastroesophageal reflux disease): (6) Migraine headache: History of Present Illness Primary Care Provider: Diana Chen is a 54-year-old male with a past medical history of GERD, hypertension, OCD, ADHD, seizure, migraines and degenerative disc disease who presents to the ER for fatigue, global weakness, and concern for left facial droop. On ER evaluation he was found to be hypoxic at 87% on room air. Seen at the bedside with family present. Had shingles shot 1 week ago. Feeling poorly since, attributed this to the vaccination. Has been more short of breath, less coherant, and more short of breath in the last week. Endorses weak all over, denies focal limb/one sided weakness. No dysarthria or aphasia. No vision change. +cough. +productive for yellow/brown sputum. This is new in the last week and not normal for him +wheezing in week. Hx of childhood asthma. uses a rescue inhaler as needed, hasn't needed it recently but did use it once in the last week. no daily inhalers. No seizures since 2005. No longer takes clonazepam. Stopped taking this one year ago. No issues since. Does take ativan 2mg TID everyday. Medical History: Reviewed Medications: Reviewed Surgical History: Reviewed Family history: Reviewed Allergies: Reviewed. Wheezing/dyspnea on lisinopril. Thinks he has an antiobiotic allergy to something, but not sure. +stomach upset. Social History: Chew tobacco, 4 pouches per day. Very rare ETOH use. No recreational drug use. Code Status: Full Code Allergies Allergy/AdvReac Type Severity Reaction Status Date / Time aspirin Allergy Severe Anaphylaxis Verified 01/16/25 17:44 diphenhydramine Allergy Severe Anaphylaxis Verified 01/16/25 17:44 [From Benadryl] lisinopril Allergy Severe Difficulty Verified 01/16/25 17:44 Breathing buspirone [From BuSpar] AdvReac Severe Severe Verified 01/16/25 17:44 anxiety Home Medications Medication Instructions Recorded Confirmed Type propranolol 60 mg capsule,24 60 mg PO BID 08/30/18 01/16/25 History hr,extended release tramadol 50 mg tablet 50 mg PO TID PRN Pain 08/30/18 01/16/25 History fexofenadine 180 mg tablet 180 mg PO HS PRN Itching 04/19/19 01/16/25 History (Allergy Relief (fexofenadine)) clomipramine 75 mg capsule 150 mg PO HS 07/11/19 01/16/25 History bupropion HCl 100 mg tablet 150 mg PO BID 09/08/19 01/16/25 History clomipramine 50 mg capsule 50 mg PO BID 09/08/19 01/16/25 History dextroamphetamine-amphetamine 30 30 mg PO .Q AFTERNOON 09/09/19 01/16/25 History mg tablet dextroamphetamine-amphetamine ER 30 mg PO QAM 09/09/19 01/16/25 History 30 mg 24hr capsule,extend release levetiracetam 500 mg tablet 500 mg PO BID 02/26/20 01/16/25 History (Keppra) cholecalciferol (vitamin D3) 50 50 mcg PO DAILY 09/27/23 01/16/25 History mcg (2,000 unit) capsule magnesium citrate,mag oxide 250 mg 250 mg PO DAILY 09/27/23 01/16/25 History capsule multivitamin 1 tab PO DAILY 09/27/23 01/16/25 History verapamil 120 mg 24 hr 120 mg PO DAILY 02/01/24 01/16/25 History capsule,extended release albuterol sulfate 90 mcg/actuation 2 puff inhalation Q6H PRN 12/26/24 01/16/25 History aerosol inhaler Shortness Of Breath Or Wheezing amlodipine 10 mg tablet 10 mg PO DAILY 12/26/24 01/16/25 History buspirone 10 mg tablet 10 mg PO BID 12/26/24 01/16/25 History esomeprazole magnesium 40 mg 40 mg PO DAILY 12/26/24 01/16/25 History capsule,delayed release gabapentin 600 mg tablet 600 mg PO TID 12/26/24 01/16/25 History hydroxyzine HCl 50 mg tablet 50 mg PO BID 12/26/24 01/16/25 History lorazepam 2 mg tablet 2 mg PO TID 12/26/24 01/16/25 History sumatriptan succinate 100 mg tablet 100 mg PO DAILY PRN Migraine 12/26/24 01/16/25 History Headache ipratropium 0.5 mg-albuterol 3 mg 3 ml inhalation DIRECTED PRN 01/16/25 01/16/25 History (2.5 mg base)/3 mL nebulization Shortness Of Breath Or Wheezing soln Past Med/Surg History Problem List (Updated 01/16/25 @ 19:21 by Sandoval Baca MD) Bilateral pneumonia Chronic low back pain Left foot pain OCD (obsessive compulsive disorder) (Chronic) ADHD (attention deficit hyperactivity disorder) (Chronic) HTN (hypertension) (Chronic) GERD (gastroesophageal reflux disease) (Chronic) Depression (Chronic) Migraine headache (Chronic) Arthritis, rheumatoid (Chronic) Anxiety (Chronic) Lumbar pain (Chronic) Hx of appendectomy (Chronic) Radicular pain of left lower extremity (Chronic) Cervical pain Thoracic facet syndrome Angioedema (Acute) ALEXIS (acute kidney injury) (Acute) Seizure Lumbar facet joint syndrome Thoracic back pain Radicular pain of right lower extremity Social History Smoking Status: Never smoker Second Hand Exposure: No; Do You Dip or Chew Tobacco: Yes; Hx Alcohol Use: Yes Alcohol type: beer Hx Substance Use: No Preferred Language: Tongan Communication Ability: Effective Visual Impairment: No Limitations Hearing Ability: Normal Sap Trainer Required: No Beliefs That Will Affect Care: None marital status: single Current Living Situation: Parent Current Living Situation Comment: Lives at parents home current occupational status: unemployed Feels Safe at Home: Yes Assistive Devices: Glasses Physical Exam Physical Exam: General: A&Ox3. NAD. Cooperative. HEENT: Atraumatic, normocephalic. Vision and hearing grossly intact. Pupils equal and reactive to light. EOM intact. No facial asymmetry. Tongue protrudes midline. Eyebrow raise, cheek puff, smile with intact strength and symmetrical. Pulm: Diffuse crackles bilaterally. Scant expiratory wheeze diffusely. Symmet rical chest rise. No increased work of breathing. No respiratory distress. Cardiac: RRR, -mrg. Radial pulses intact and symmetrical. Abdominal: Nontender, nondistended, soft. BS present. Extremities: Warm, dry. Paper Latcher strength, elbow flexion, shoulder flexion/extension, shoulder internal rotation/external rotation, ankle dorsiflexion/plantarflexion 5/5 without deficit or asymmetry. Sensation soft touch intact in hands and feet without deficit Results & Data Results & Data Vital Signs (Past 12 Hours) Vital Signs Temp Pulse Pulse Resp BP BP Pulse Ox 01/16/25 18:46 87 24 91 01/16/25 18:02 85 24 92 01/16/25 18:00 37.3 C 86 24 138/85 85 L 01/16/25 17:15 91 01/16/25 16:36 88 24 01/16/25 16:30 150/97 H 01/16/25 16:30 150/97 H 01/16/25 16:27 94 H 21 01/16/25 16:22 142/93 H 01/16/25 16:22 84 24 142/93 H 94 01/16/25 16:12 84 18 93 01/16/25 16:03 85 19 92 01/16/25 16:00 125/84 01/16/25 15:59 136/88 01/16/25 15:48 82 16 94 01/16/25 15:36 83 16 94 01/16/25 15:34 83 01/16/25 15:32 82 19 95 01/16/25 15:28 83 18 145/94 H 94 01/16/25 15:07 37.2 C 88 18 138/84 87 L O2 Del Method O2 Flow Rate 01/16/25 18:46 Nasal Cannula 3 01/16/25 18:02 Nasal Cannula 3 01/16/25 18:00 Room Air 01/16/25 17:15 Nasal Cannula 2 01/16/25 16:36 01/16/25 16:30 01/16/25 16:30 01/16/25 16:27 01/16/25 16:22 01/16/25 16:22 Nasal Cannula 2 01/16/25 16:12 01/16/25 16:03 01/16/25 16:00 01/16/25 15:59 01/16/25 15:48 01/16/25 15:36 01/16/25 15:34 01/16/25 15:32 Nasal Cannula 2 01/16/25 15:28 Nasal Cannula 2 01/16/25 15:07 Room Air PG Care Time/CCT Total # of Minutes Spent Total Time Spent with Patient: Total time spent is greater than 50% in coordination of care (as documented) at patient's floor/unit and/or counseling patient: Coding Level of Care Code 68580 INT INP/OBS CARE 3/75MIN Diagnoses Bilateral pneumonia J18.9 OCD (obsessive compulsive disorder) F42.9 ADHD (attention deficit hyperactivity disorder) F90.9 HTN (hypertension) I10 GERD (gastroesophageal reflux disease) K21.9 Migraine headache G43.909
[2025-01-16] MEDS ORDERED: NALOXONE HCL 0.4 MG/1 ML VIAL/CARP IV PRN (19:39)
--- NOTE | 2025-01-16 20:26 | Emergency Department Note ---
History of Present Illness General Chief complaint: Referred by Doctor Stated complaint: BRAIN SCAN, DOC REFERRAL Time Seen by Provider: 01/16/25 15:17 Source: patient and family (Parents at bedside) History of Present Illness Provider complaint: Altered mental status 54-year-old male presents emergency department for altered mental status. Patient is accompanied by his parents. Parents report that the patient has been increasing confused over the last 7 days. They state that the patient has been dropping things when reaching for them. They report no falls or traumas. Patient reports no headache. No neck pain. No cough. No chest pain or difficulty breathing. Family does report a fever Tmax 102.7 over the last week. No reported tick bites. Home Medications Medication Instructions Recorded Confirmed Type propranolol 60 mg capsule,24 60 mg PO BID 08/30/18 01/16/25 History hr,extended release tramadol 50 mg tablet 50 mg PO TID PRN Pain 08/30/18 01/16/25 History fexofenadine 180 mg tablet 180 mg PO HS PRN Itching 04/19/19 01/16/25 History (Allergy Relief (fexofenadine)) clomipramine 75 mg capsule 150 mg PO HS 07/11/19 01/16/25 History bupropion HCl 100 mg tablet 150 mg PO BID 09/08/19 01/16/25 History clomipramine 50 mg capsule 50 mg PO BID 09/08/19 01/16/25 History dextroamphetamine-amphetamine 30 30 mg PO .Q AFTERNOON 09/09/19 01/16/25 History mg tablet dextroamphetamine-amphetamine ER 30 mg PO QAM 09/09/19 01/16/25 History 30 mg 24hr capsule,extend release levetiracetam 500 mg tablet 500 mg PO BID 02/26/20 01/16/25 History (Keppra) cholecalciferol (vitamin D3) 50 50 mcg PO DAILY 09/27/23 01/16/25 History mcg (2,000 unit) capsule magnesium citrate,mag oxide 250 mg 250 mg PO DAILY 09/27/23 01/16/25 History capsule multivitamin 1 tab PO DAILY 09/27/23 01/16/25 History verapamil 120 mg 24 hr 120 mg PO DAILY 02/01/24 01/16/25 History capsule,extended release albuterol sulfate 90 mcg/actuation 2 puff inhalation Q6H PRN 12/26/24 01/16/25 History aerosol inhaler Shortness Of Breath Or Wheezing amlodipine 10 mg tablet 10 mg PO DAILY 12/26/24 01/16/25 History buspirone 10 mg tablet 10 mg PO BID 12/26/24 01/16/25 History esomeprazole magnesium 40 mg 40 mg PO DAILY 12/26/24 01/16/25 History capsule,delayed release gabapentin 600 mg tablet 600 mg PO TID 12/26/24 01/16/25 History hydroxyzine HCl 50 mg tablet 50 mg PO BID 12/26/24 01/16/25 History lorazepam 2 mg tablet 2 mg PO TID 12/26/24 01/16/25 History sumatriptan succinate 100 mg tablet 100 mg PO DAILY PRN Migraine 12/26/24 01/16/25 History Headache ipratropium 0.5 mg-albuterol 3 mg 3 ml inhalation DIRECTED PRN 01/16/25 01/16/25 History (2.5 mg base)/3 mL nebulization Shortness Of Breath Or Wheezing soln Allergies Allergy/AdvReac Type Severity Reaction Status Date / Time aspirin Allergy Severe Anaphylaxis Verified 01/16/25 17:44 diphenhydramine Allergy Severe Anaphylaxis Verified 01/16/25 17:44 [From Benadryl] lisinopril Allergy Severe Difficulty Verified 01/16/25 17:44 Breathing buspirone [From BuSpar] AdvReac Severe Severe Verified 01/16/25 17:44 anxiety Past Med/Surg History Problem List (Updated 01/16/25 @ 20:26 by Wayne Gillespie MD) Pneumonia (Acute) Hypoxia (Acute) Bilateral pneumonia Chronic low back pain Left foot pain OCD (obsessive compulsive disorder) (Chronic) ADHD (attention deficit hyperactivity disorder) (Chronic) HTN (hypertension) (Chronic) GERD (gastroesophageal reflux disease) (Chronic) Depression (Chronic) Migraine headache (Chronic) Arthritis, rheumatoid (Chronic) Anxiety (Chronic) Lumbar pain (Chronic) Hx of appendectomy (Chronic) Radicular pain of left lower extremity (Chronic) Cervical pain Thoracic facet syndrome Angioedema (Acute) ALEXIS (acute kidney injury) (Acute) Seizure Lumbar facet joint syndrome Thoracic back pain Radicular pain of right lower extremity Social History Smoking Status: Never smoker Second Hand Exposure: No; Do You Dip or Chew Tobacco: Yes; Hx Alcohol Use: Yes Alcohol type: beer Hx Substance Use: No Preferred Language: Kyrgyz Communication Ability: Effective Visual Impairment: No Limitations Hearing Ability: Normal Care Giver Required: No Beliefs That Will Affect Care: None marital status: single Current Living Situation: Parent Current Living Situation Comment: Lives at parents home current occupational status: unemployed Feels Safe at Home: Yes Assistive Devices: Glasses Physical Exam Vital Signs Vital Signs - 24 hr 01/16/25 15:07 01/16/25 15:28 01/16/25 15:32 Temperature 37.2 C Temperature Source Temporal Artery Scan Pulse Rate 88 82 Pulse Rate [Apical] 83 Pulse Rate from SpO2 Sensor Respiratory Rate 18 18 19 Respiratory Effort / Characteristics Non-Labored Spontaneous Non-Labored Spontaneous Respiratory Depth Normal Normal Respiratory Pattern Regular Regular Blood Pressure 138/84 Blood Pressure [Left Arm] 145/94 H Blood Pressure Mean 102 Blood Pressure Mean [Left Arm] 111 Blood Pressure Position [Left Arm] Semi-fowlers Pulse Oximetry 87 L 94 95 Oxygen Delivery Method Room Air Nasal Cannula Nasal Cannula Oxygen Flow Rate 2 2 Sepsis Recent Fever Within 48 Hours No Sepsis New/Unexplained Change in Mental Status N/A Sepsis Action Taken by Nursing No Action Required 01/16/25 15:34 01/16/25 15:36 01/16/25 15:48 Temperature Temperature Source Pulse Rate 83 83 82 Pulse Rate [Apical] Pulse Rate from SpO2 Sensor 83 83 Respiratory Rate 16 16 Respiratory Effort / Characteristics Respiratory Depth Respiratory Pattern Blood Pressure Blood Pressure [Left Arm] Blood Pressure Mean Blood Pressure Mean [Left Arm] Blood Pressure Position [Left Arm] Pulse Oximetry 94 94 Oxygen Delivery Method Oxygen Flow Rate Sepsis Recent Fever Within 48 Hours Sepsis New/Unexplained Change in Mental Status Sepsis Action Taken by Nursing 01/16/25 15:59 01/16/25 16:00 01/16/25 16:03 Temperature Temperature Source Pulse Rate 85 Pulse Rate [Apical] Pulse Rate from SpO2 Sensor 85 Respiratory Rate 19 Respiratory Effort / Characteristics Respiratory Depth Respiratory Pattern Blood Pressure 136/88 125/84 Blood Pressure [Left Arm] Blood Pressure Mean 99 101 Blood Pressure Mean [Left Arm] Blood Pressure Position [Left Arm] Pulse Oximetry 92 Oxygen Delivery Method Oxygen Flow Rate Sepsis Recent Fever Within 48 Hours Sepsis New/Unexplained Change in Mental Status Sepsis Action Taken by Nursing 01/16/25 16:12 01/16/25 16:22 01/16/25 16:22 Temperature Temperature Source Pulse Rate 84 Pulse Rate [Apical] 84 Pulse Rate from SpO2 Sensor 83 Respiratory Rate 18 24 Respiratory Effort / Characteristics Non-Labored Spontaneous Respiratory Depth Normal Respiratory Pattern Regular Blood Pressure 142/93 H Blood Pressure [Left Arm] 142/93 H Blood Pressure Mean 99 Blood Pressure Mean [Left Arm] 109 Blood Pressure Position [Left Arm] Semi-fowlers Pulse Oximetry 93 94 Oxygen Delivery Method Nasal Cannula Oxygen Flow Rate 2 Sepsis Recent Fever Within 48 Hours Sepsis New/Unexplained Change in Mental Status Sepsis Action Taken by Nursing 01/16/25 16:27 01/16/25 16:30 01/16/25 16:30 Temperature Temperature Source Pulse Rate 94 H Pulse Rate [Apical] Pulse Rate from SpO2 Sensor Respiratory Rate 21 Respiratory Effort / Characteristics Respiratory Depth Respiratory Pattern Blood Pressure 150/97 H 150/97 H Blood Pressure [Left Arm] Blood Pressure Mean 111 111 Blood Pressure Mean [Left Arm] Blood Pressure Position [Left Arm] Pulse Oximetry Oxygen Delivery Method Oxygen Flow Rate Sepsis Recent Fever Within 48 Hours Sepsis New/Unexplained Change in Mental Status Sepsis Action Taken by Nursing 01/16/25 16:36 01/16/25 17:15 01/16/25 18:00 Temperature 37.3 C Temperature Source Oral Pulse Rate 88 Pulse Rate [Apical] 86 Pulse Rate from SpO2 Sensor 86 Respiratory Rate 24 24 Respiratory Effort / Characteristics Non-Labored Spontaneous SOB on Exertion Respiratory Depth Normal Respiratory Pattern Blood Pressure Blood Pressure [Left Arm] 138/85 Blood Pressure Mean Blood Pressure Mean [Left Arm] 102 Blood Pressure Position [Left Arm] Semi-fowlers Pulse Oximetry 91 85 L Oxygen Delivery Method Nasal Cannula Room Air Oxygen Flow Rate 2 Sepsis Recent Fever Within 48 Hours Sepsis New/Unexplained Change in Mental Status Sepsis Action Taken by Nursing 01/16/25 18:00 01/16/25 18:02 01/16/25 18:30 Temperature Temperature Source Pulse Rate 86 85 Pulse Rate [Apical] Pulse Rate from SpO2 Sensor 86 Respiratory Rate 17 24 Respiratory Effort / Characteristics Respiratory Depth Respiratory Pattern Blood Pressure 138/84 Blood Pressure [Left Arm] Blood Pressure Mean 93 Blood Pressure Mean [Left Arm] Blood Pressure Position [Left Arm] Pulse Oximetry 84 L 92 Oxygen Delivery Method Nasal Cannula Oxygen Flow Rate 3 Sepsis Recent Fever Within 48 Hours Sepsis New/Unexplained Change in Mental Status Sepsis Action Taken by Nursing 01/16/25 18:30 01/16/25 18:30 01/16/25 18:30 Temperature Temperature Source Pulse Rate Pulse Rate [Apical] Pulse Rate from SpO2 Sensor Respiratory Rate Respiratory Effort / Characteristics Respiratory Depth Respiratory Pattern Blood Pressure 138/84 138/84 138/84 Blood Pressure [Left Arm] Blood Pressure Mean 93 93 93 Blood Pressure Mean [Left Arm] Blood Pressure Position [Left Arm] Pulse Oximetry Oxygen Delivery Method Oxygen Flow Rate Sepsis Recent Fever Within 48 Hours Sepsis New/Unexplained Change in Mental Status Sepsis Action Taken by Nursing 01/16/25 18:30 01/16/25 18:46 01/16/25 19:00 Temperature Temperature Source Pulse Rate 86 85 Pulse Rate [Apical] 87 Pulse Rate from SpO2 Sensor 59 L 85 Respiratory Rate 24 24 24 Respiratory Effort / Characteristics Non-Labored Spontaneous Respiratory Depth Normal Respiratory Pattern Regular Blood Pressure Blood Pressure [Left Arm] Blood Pressure Mean Blood Pressure Mean [Left Arm] Blood Pressure Position [Left Arm] Pulse Oximetry 91 91 92 Oxygen Delivery Method Nasal Cannula Nasal Cannula Oxygen Flow Rate 3 3 Sepsis Recent Fever Within 48 Hours Sepsis New/Unexplained Change in Mental Status Sepsis Action Taken by Nursing 01/16/25 19:08 01/16/25 19:54 Temperature Temperature Source Pulse Rate 84 Pulse Rate [Apical] 89 Pulse Rate from SpO2 Sensor Respiratory Rate 22 Respiratory Effort / Characteristics Respiratory Depth Respiratory Pattern Blood Pressure Blood Pressure [Left Arm] 141/86 H Blood Pressure Mean Blood Pressure Mean [Left Arm] 104 Blood Pressure Position [Left Arm] Semi-fowlers Pulse Oximetry 93 Oxygen Delivery Method Nasal Cannula Oxygen Flow Rate 2 Sepsis Recent Fever Within 48 Hours Sepsis New/Unexplained Change in Mental Status Sepsis Action Taken by Nursing Physical Exam GENERAL: He is oriented to person, place, and time but appears lethargic and is slow to answer questions. HENT: Exam performed. - Head: Normocephalic and atraumatic. - Right Ear: External ear normal. No mastoid erythema - Left Ear: External ear normal. No mastoid erythema - Mouth/Throat: The oropharynx is clear and moist. No trismus in the jaw. No dental abscesses or uvula swelling. No oropharyngeal exudate or tonsillar abscesses. EYES: Pupils 1 mm and nonreactive. NECK: Normal range of motion. Neck supple. No JVD present. No rigidity. No tracheal deviation and normal range of motion present. No Brudzinski's sign and no Kernig's sign noted. CV: Normal rate, regular rhythm, normal heart sounds and intact distal pulses. There is no peripheral edema. Palpable radial pulses bue. PULM/CHEST: Rhonchi bilaterally. ABD: The abdomen is soft. There is no tenderness. There is no rebound, no guarding. MUSC/SKEL: Normal range of motion. There is no peripheral edema, tenderness or deformity. NEURO: He is alert and oriented to person, place, and time. He does appear lethargic and is slow to answer questions. He has normal strength. No cranial nerve deficit or sensory deficit. Coordination and gait normal. GCS eye subscore is 4. GCS verbal subscore is 5. GCS motor subscore is 6. Cerebellar tests wnl. SKIN: Skin is warm and dry. He is not diaphoretic. Course Course 151: The patient was evaluated in room C1. A complete history and physical exam was performed Cardiac monitoring: An order was placed for continuous cardiac monitoring. The monitor shows a rate of 80 with sinus rhythm interpreted by me Patient is found to be hypoxic on room air. Supplemental oxygen was applied via nasal cannula. External medical records reviewed. Patient has 108 controlled substance prescriptions in the last day. Patient just had 120 tablets of 50 mg tramadol prescribed to him 1 week ago. Given the patient's pinpoint pupils, lethargy, and hypoxia, there is concern for opiate intoxication/abuse. Patient be treated with IV Narcan. 1640: Vital signs stable on supplemental oxygen. Narcan was administered and the patient did appear more alert and his pupils were no longer pinpoint. However, when the supplemental oxygen was removed and the patient went to the bathroom he easily became winded and his oxygen saturations dropped. Patient was placed back on supplemental oxygen. 1730: Vital signs stable on supplemental oxygen via nasal cannula. Imaging shows pneumonia. Patient will be treated with Rocephin and azithromycin. 1810: Vital signs stable on supplemental oxygen via nasal cannula. CTA of the chest shows no PE. CT head is unremarkable. CTA chest confirms pneumonia. Patient will be admitted to the [facility] hospitalist team. Administered Medications Discontinued Medications Azithromycin (Azithromycin 250 Mg Tab) 500 mg PO NOW ONE Stop: 01/16/25 17:00 Last Admin: 01/16/25 17:11 Dose: 500 mg Documented By: ML Sodium Chloride (Nss) 500 mls @ 999 mls/hr IV .Q31M ONE Stop: 01/16/25 15:56 Last Infusion: 01/16/25 17:09 Dose: Infused Documented By: Admin: 01/16/25 15:57 Dose: 999 mls/hr Documented By: PATRICIA Ceftriaxone Sodium (Rocephin) 2,000 mg in 50 mls @ 100 mls/hr IV NOW STA Stop: 01/16/25 17:28 Last Infusion: 01/16/25 18:11 Dose: Infused Documented By: Admin: 01/16/25 17:11 Dose: 100 mls/hr Documented By: NAVA Ioversol (Optiray 320 125ml) 115 ml IV ONCE ONE Stop: 01/16/25 17:46 Last Admin: 01/16/25 17:45 Dose: 115 ml Documented By: LEANDRO Naloxone HCl (Naloxone Hcl 0.4 Mg/1 Ml Vial/Carp) 2 mg IV ONE ONE Stop: 01/16/25 16:16 Last Admin: 01/16/25 16:19 Dose: 2 mg Documented By: PATRICIA Critical Care Time Critical Care Time: Yes Total Critical Care Time: 53 I have personally spent greater than 53 minutes of critical care time in the direct management of this patient. This includes bedside care, interpretation of diagnostic studies, and testing, discussion with consultants, patient, and family members, and other required patient management activities. This 53 minutes is in excess of all separately billable procedures. Medical Decision Making Laboratory Data Attestation: I reviewed the patient's lab results. 01/16/25 15:43 01/16/25 15:43 Lab Results 01/16/25 01/16/25 Range/Units 15:43 16:24 WBC 8.19 (4.8-10.8) K/ul RBC 4.38 L (4.70-6.10) M/uL Hgb 11.6 L (14.0-18.0) g/dl Hct 35.6 L (42.0-52.0) % MCV 81.3 (80.0-100.0) fL MCH 26.5 (25.0-34.0) pg MCHC 32.6 (32.0-36.0) g/dL RDW Std Deviation 41.8 (36.4-46.3) fL RDW Coeff of Charlie 14.1 (11.5-14.5) % Plt Count 240 (130-400) K/uL MPV 10.2 (9.4-12.4) fL Immature Gran % (Auto) 0.7 % Neut % (Auto) 67.4 % Lymph % (Auto) 19.4 % [place] % (Auto) 7.9 % Eos % (Auto) 4.5 % Baso % (Auto) 0.1 % Neut # (Auto) 5.51 (1.40-6.50) K/uL Lymph # (Auto) 1.59 (1.20-3.40) K/uL [place] # (Auto) 0.65 H (0.11-0.59) K/uL Eos # (Auto) 0.37 (0.00-0.50) K/uL Baso # (Auto) 0.01 (0.00-0.20) K/uL Immature Gran # (Auto) 0.06 (0.01-0.20) K/uL PT 10.7 (9.0-12.0) Seconds INR 1.0 (0.9-1.1) APTT 39 H (21-31) Seconds PTT Ratio 1.4 VBG pH 7.44 H (7.36-7.41) VBG pCO2 45 (38-50) mmHg VBG pO2 57 mmHg VBG HCO3 31 mmol/L VBG O2 Saturation 90.9 % VBG Base Excess 5.6 mEq/L Sodium 132 L (136-145) mmol/L Potassium 3.8 (3.5-5.1) mmol/L Chloride 96 L (98-107) mmol/L Carbon Dioxide 28 (21-32) mmol/L Anion Gap 8 (3-11) BUN 18 (6-23) mg/dl Creatinine 1.12 (0.6-1.4) mg/dl Est Cr Clr Drug Dosing 94.0 ml/min eGFR 78.55 BUN/Creatinine Ratio 16.1 (10-20) Glucose 74 (70-99(Fasting)) mg/dl Calcium 8.8 (8.6-10.3) mg/dl Ammonia 28.0 (18-72) umol/L Urine Color Yellow Urine Appearance Clear (Clear) Urine pH 6.0 (4.5-7.5) Ur Specific [place] 1.021 (1.000-1.030) Urine Protein Trace H (Negative) Urine Glucose (UA) Negative (Negative) Urine Ketones Negative (Negative) Urine Blood Negative (Negative) Urine Nitrite Negative (Negative) Urine Bilirubin Negative (Negative) Urine Urobilinogen Negative (Negative) Ur Leukocyte Esterase Negative (Negative) Urine WBC (Auto) 0-5 (0-5) /hpf Urine RBC (Auto) 0-2 (0-2) /hpf U Hyaline Cast (Auto) 0-2 (0-2) /lpf U Epithel Cells (Auto) 0-2 (0-2) /hpf Urine Bacteria (Auto) None Seen (None Seen) Urine Comment Urine Opiates Screen Neg (Neg) Ur Methadone, Qual Neg (Neg) Urine Fentanyl Screen Neg (Neg) Acetaminophen < 3 L (10-30) ug/ml Urine Barbiturates Neg (Neg) Ur Phencyclidine (PCP) Neg (Neg) U Amphetamin/Meth Scrn Neg (Neg) MDMA (Ecstasy) Screen Pos H (Neg) U Benzodiazepines Scrn Neg (Neg) Ur Cocaine Metabolite Neg (Neg) U Marijuana (THC) Screen Neg (Neg) Ethyl Alcohol mg/dL < 10.0 (<10.0) mg/dl Imaging Data Attestation: I personally reviewed and interpreted this imaging study as follows: My Impression: Chest x-ray: Bilateral infiltrates Radiologist's Impression: Chest X-Ray 01/16/25 15:27 Chest radiograph, one view History: AMS Comparison: None Findings: Single AP view of the chest performed. Bibasilar patchy opacities seen. Pleural effusion. No pneumothorax. The cardiomediastinal silhouette is within normal limits. Normal pulmonary vascularity. No evidence for lymphadenopathy. No visualized bony or soft tissue abnormality. Impression: Bibasilar patchy opacities are suspicious for infection Electronically signed by Kirk Zamora 01-16-2025 4:[address] 01/16/25 15:27 Clinical History: Altered mental status. Technique: Axial computed tomography images were obtained of the brain from the vertex to the skull base without intravenous contrast. Findings: There is no sign of intracranial hemorrhage. There is normal moore-white matter differentiation with no sign of acute or old infarction. No midline shift or other form of herniation is identified. There is no hydrocephalus. No obvious mass lesion is seen on this noncontrast examination. There is mild left sphenoid sinus mucosal thickening. The mastoid air cells appear clear Impression: Unremarkable noncontrast CT of the brain Electronically signed by Yuri Fernández 01-16-2025 5:58 PM Chest CTA 01/16/25 16:29 Clinical history: Chest pain Technique: Axial computed tomography images were obtained of the chest after the administration of intravenous contrast according to the CT angiogram protocol Findings: There is no definite sign of pulmonary embolism. Evaluation of some of the peripheral pulmonary arteries is limited by motion artifact and suboptimal contrast opacification There are multifocal alveolar and nodular infiltrates in the bilateral lower lobes and to a lesser extent the right middle lobe and lingula, consistent with pneumonia. There is no pleural effusion or pneumothorax. There is peripheral bronchial is plaque in both lower lobes There are multiple small mediastinal and hilar lymph nodes. There is no overt mediastinal, hilar, or axillary adenopathy. The thoracic aorta appears unremarkable with no sign of aneurysm or dissection. There is no pericardial effusion The spleen is mildly enlarged measuring 14 cm. There is a small hiatal hernia. No fracture is seen. No focal osseous lesion is evident Impression: 1. No definite sign of pulmonary embolism. Evaluation of some of the peripheral pulmonary arteries was suboptimal and small peripheral lower lobe emboli cannot be excluded 2. Bilateral pneumonia 3. Small hiatal hernia 4. Mild splenomegaly ACT 112: Positive. There are findings on this exam that require communication between the performing entity and the patient following Patient Test Result Information Act ([place] ACT 112) guidelines. Electronically signed by Yuri Fernández 01-16-2025 6:02 PM ECG Data Attestation: I personally reviewed and interpreted this ECG as follows: Rate (beats per minute): 83 Rhythm: + normal sinus ECG Intervals/blocks: + Right Bundle branch block, + Normal QRS, + Normal SD and + Normal QT-c ECG ST segments: + Normal ST segments MDM Narrative 1517: The patient was evaluated in room C1. A complete history and physical exam was performed Cardiac monitoring: An order was placed for continuous cardiac monitoring. The monitor shows a rate of 80 with sinus rhythm interpreted by me Patient is found to be hypoxic on room air. Supplemental oxygen was applied via nasal cannula. External medical records reviewed. Patient has 108 controlled substance prescriptions in the last day. Patient just had 120 tablets of 50 mg tramadol prescribed to him 1 week ago. Given the patient's pinpoint pupils, lethargy, and hypoxia, there is concern for opiate intoxication/abuse. Patient be treated with IV Narcan. 1640: Vital signs stable on supplemental oxygen. Narcan was administered and the patient did appear more alert and his pupils were no longer pinpoint. However, when the supplemental oxygen was removed and the patient went to the bathroom he easily became winded and his oxygen saturations dropped. Patient was placed back on supplemental oxygen. 1730: Vital signs stable on supplemental oxygen via nasal cannula. Imaging shows pneumonia. Patient will be treated with Rocephin and azithromycin. 1810: Vital signs stable on supplemental oxygen via nasal cannula. CTA of the chest shows no PE. CT head is unremarkable. CTA chest confirms pneumonia. Patient will be admitted to the [facility] Hospitalist team. Impression & Plan Hypoxia, Pneumonia Discharge Plan Visit Data Chief Complaint: Referred by Doctor Stated Complaint: BRAIN SCAN, DOC REFERRAL ED Provider: Wayne Gillespie Discharge Problem: Hypoxia, Pneumonia Patient Disposition: Admitted As Inpatient Condition: Fair Forms Stand Alone Forms: My [facility] Prescriptions Prescriptions: No Action tramadol 50 mg tablet 50 mg PO TID PRN (Reason: Pain) propranolol 60 mg capsule,extended release 24 hr 60 mg PO BID fexofenadine [Allergy Relief (fexofenadine)] 180 mg tablet 180 mg PO HS PRN (Reason: Itching) clomipramine 75 mg capsule 150 mg PO HS verapamil 120 mg capsule,ext rel. pellets 24 hr 120 mg PO DAILY Rx Instructions: UNABLE TO VERIFY THIS MED. esomeprazole magnesium 40 mg capsule,delayed release(DR/EC) 40 mg PO DAILY albuterol sulfate 90 mcg/actuation HFA aerosol inhaler 2 puff inhalation Q6H PRN (Reason: Shortness Of Breath Or Wheezing) gabapentin 600 mg tablet 600 mg PO TID lorazepam 2 mg tablet 2 mg PO TID hydroxyzine HCl 50 mg tablet 50 mg PO BID sumatriptan succinate 100 mg tablet 100 mg PO DAILY PRN (Reason: Migraine Headache) Rx Instructions: MAY REPEAT IN 2 HRS, IF NEEDED. amlodipine 10 mg tablet 10 mg PO DAILY buspirone 10 mg tablet 10 mg PO BID levetiracetam [Keppra] 500 mg tablet 500 mg PO BID multivitamin Tablet 1 tab PO DAILY magnesium citrate,mag oxide 250 mg capsule 250 mg PO DAILY cholecalciferol (vitamin D3) 50 mcg (2,000 unit) capsule 50 mcg PO DAILY bupropion HCl 100 mg tablet 150 mg PO BID clomipramine 50 mg capsule 50 mg PO BID dextroamphetamine-amphetamine 30 mg tablet 30 mg PO .Q AFTERNOON dextroamphetamine-amphetamine 30 mg capsule,extended release 24hr 30 mg PO QAM ipratropium-albuterol 0.5 mg-3 mg(2.5 mg base)/3 mL Solution For Nebulization 3 ml INHALATION DIRECTED PRN (Reason: Shortness Of Breath Or Wheezing) Referrals Referrals: Diana Guevara [Primary Care Provider] - Discharge Problem: Pneumonia Qualifiers: Pneumonia type: due to unspecified organism Laterality: bilateral
[2025-01-16] MEDS ORDERED: FEXOFENADINE HCL 180 MG TAB PO PRN (22:15)
[2025-01-16] MEDS ORDERED: ALBUT/IPRATROP 3MG/0.5MG NEB 3 ML VIAL INH PRN (22:15)
[2025-01-16] MEDS ORDERED: POLYETHYLENE (MIRALAX) 17 GM PACK PO PRN (22:15)
[2025-01-16] MEDS ORDERED: ONDANSETRON INJ 2 MG/ML 2 ML VIAL IV PRN (22:15)
[2025-01-16] MEDS ORDERED: ALBUTEROL HFA 8 GM INHALER INH PRN (22:15)
[2025-01-16] MEDS ORDERED: ACETAMINOPHEN 325 MG TAB PO PRN (22:15)
[2025-01-16] MEDS: ENOXAPARIN INJ 40 MG/0.4 ML SYR SQ SCH (23:07)
[2025-01-16] MEDS: busPIRone 5 MG TAB PO SCH (23:07)
[2025-01-16] MEDS: levETIRAcetam 500 MG TAB PO SCH (23:08)
[2025-01-16] MEDS: PROPRANOLOL HCL 60 MG LA CAP PO SCH (23:08)
[2025-01-16] MEDS: LORazepam 1 MG TAB PO SCH (23:58)
[2025-01-17 07:53] LABS: Hematocrit (blood only) 40.0 % (42.0-52.0); Hemoglobin 13.0 g/dl (14.0-18.0); Immature Granulocytes # (auto) 0.06 K/uL (0.01-0.20); Immature Granulocytes % (auto) 0.9 %; Mean Corpuscular Hemoglobin 27.1 pg (25.0-34.0); Mean Corpuscular Volume 83.3 fL (80.0-100.0); Platelet Count 249 K/uL (130-400); RDW Standard Deviation 42.8 fL (36.4-46.3); Red Blood Count 4.80 M/uL (4.70-6.10); White Blood Count 6.71 K/ul (4.8-10.8)
[2025-01-17 08:09] LABS: Anion Gap 7.0 (3-11); Blood Urea Nitrogen 13.0 mg/dl (6-23); Calcium 8.8 mg/dl (8.6-10.3); Carbon Dioxide 32.0 mmol/L (21-32); Chloride 100.0 mmol/L (98-107); Creatinine Clr Calc Pharmacy 101.1 ml/min; Glucose 94.0 mg/dl (70-99(Fasting)); Potassium 3.9 mmol/L (3.5-5.1); Sodium 139.0 mmol/L (136-145)
[2025-01-17] MEDS ORDERED: AZITHROMYCIN 250 MG TAB PO SCH (09:00)
[2025-01-17] MEDS: MULTIVITAMIN TAB PO SCH (09:26)
[2025-01-17] MEDS: CHOLECALCIFEROL 25 MCG (1000 UNITS) TAB PO SCH (09:26)
[2025-01-17] MEDS: VERAPAMIL HCL 120 MG TABCR PO SCH (09:28)
[2025-01-17] MEDS: GABAPENTIN 600 MG TAB PO SCH (09:28)
[2025-01-17] MEDS: AZITHROMYCIN 250 MG TAB PO SCH (11:03)
--- NOTE | 2025-01-17 14:46 | Hospitalist Progress Note ---
Date of Service January 17, 2025 Assessment & Plan (1) Bilateral pneumonia: Plan: 54 y/o admitted with bilateral pneumonia. Fairly extensive on chest CTA which was negative for PE or other acute findings # Multifocal pneumonia - improved but remains hypoxic needing supplemental O2. Afebrile and WBC 6 - continue ceftriaxone and azithromycin - changed to 500 mg po daily x 3d - potentially home tomorrow if hypoxia improved Acute metabolic encephalopathy due to bilateral pneumonia - resolved History of seizure History of provoked generalized seizures. No seizure since 2005 per patient No incontinence, seizure activity [employer]PLE [employer]OR[employer]. Low suspicion for seizure leading to aspiration/pneumonia. did not appear postictal Is on bupropion which can lower seizure threshold, known and follows with neurology. - Switched clonazepam to ativan ~1 year ago. Continued Continue Keppra 500 mg twice daily History of migraines Continue verapamil No migraine on admitting exam History of asthma Some wheezing on admission. Only uses a rescue inhaler which she needs rarely although did use once in the last week Mild acute exacerbation with pneumonia on admission - treated with steroids, resolved Continue albuterol as needed Has not had ongoing steroids and no e/o bronchospasm at this time, monitor Depression/OCD/anxiety Continue clomipramine 150 mg at bedtime, 50mg BID. - Wellbutrin 150mg BID continued Continue BuSpar - Ativan 2mg TID continued. Not tapered at this time due to regular use and risk of seizure. - positive MDMA on Utox is a false positive related to his meds (bupropion, ADHD meds) Hypertension Continue verapamil, propranolol ADHD resume dextroamphetamineamphetamine GERD Continue PPI daily, convert to Protonix while admitted Lumbar facet syndrome Postop pain management, as needed L4/L5/S1 blocks. Last seen by pain management 12/26/2024 - Pain adequately controlled @ admission DVT PPx: Lovenox (2) OCD (obsessive compulsive disorder): (3) ADHD (attention deficit hyperactivity disorder): (4) HTN (hypertension): (5) GERD (gastroesophageal reflux disease): (6) Migraine headache: Admission and Anticipated Discharge Date Admission Date: January 16, 2025 Subjective Feels better, he does feel tired and wants to sleep. Some coughing but [employer], no chest pain. On 2.5L oxygen No abdominal pain or N/V Physical Exam Physical Exam: Last 24h vitals reviewed GEN: no acute distress, sitting in bed, lying on side napping, aroused easily HEENT: pupils equal, sclerae anicteric, moist MM RESP: normal WOB, CTAB anteriorly and bilateral crackles posteriorly no wheezing CV: reg no mrg ABD: soft/nt/nd +BT : no ott SKIN: warm and dry, no generalized rashes NEURO: AOx person, place, and situation. Face symmetric, speech normal, moves 4 ext spontaneously and equally Results & Data Results & Data Vital Signs (Past 12 Hours) Vital Signs Temp Pulse Pulse Resp BP BP Pulse Ox 01/17/25 12:25 37.3 C 69 16 121/75 92 01/17/25 08:04 36.8 C 74 18 118/75 91 01/17/25 07:16 71 01/17/25 03:49 36.8 C 68 18 121/71 92 O2 Del Method O2 Flow Rate 01/17/25 12:25 Nasal Cannula 01/17/25 08:04 Nasal Cannula 01/17/25 07:16 01/17/25 03:49 Nasal Cannula 2 PG Care Time/CCT Total # of Minutes Spent Total Time Spent with Patient: Total time spent is greater than 50% in coordination of care (as documented) at patient's floor/unit and/or counseling patient: Coding Level of Care Code 49587 SUB INP/OBS CARE 2/35MIN Diagnoses Bilateral pneumonia J18.9 OCD (obsessive compulsive disorder) F42.9 ADHD (attention deficit hyperactivity disorder) F90.9 HTN (hypertension) I10 GERD (gastroesophageal reflux disease) K21.9 Migraine headache G43.909
[2025-01-17] MEDS: ADVANCED PROBIOTIC 625 MG CAPSULE PO SCH (16:11)
[2025-01-17] MEDS: cefTRIAXone SODIUM 2,000 MG/50 ML BAG IV SCH (20:15)
[2025-01-18 03:47] VITALS: TEMP 98.1
[2025-01-18 08:08] LABS: Hematocrit (blood only) 40.3 % (42.0-52.0); Hemoglobin 13.0 g/dl (14.0-18.0); Immature Granulocytes # (auto) 0.08 K/uL (0.01-0.20); Immature Granulocytes % (auto) 1.0 %; Mean Corpuscular Hemoglobin 26.8 pg (25.0-34.0); Mean Corpuscular Volume 83.1 fL (80.0-100.0); Platelet Count 294 K/uL (130-400); RDW Standard Deviation 42.6 fL (36.4-46.3); Red Blood Count 4.85 M/uL (4.70-6.10); White Blood Count 7.83 K/ul (4.8-10.8)
[2025-01-18 08:32] LABS: Anion Gap 8.0 (3-11); Blood Urea Nitrogen 17.0 mg/dl (6-23); Calcium 8.9 mg/dl (8.6-10.3); Carbon Dioxide 30.0 mmol/L (21-32); Chloride 101.0 mmol/L (98-107); Creatinine Clr Calc Pharmacy 103.6 ml/min; Glucose 86.0 mg/dl (70-99(Fasting)); Potassium 3.9 mmol/L (3.5-5.1); Sodium 139.0 mmol/L (136-145)
[2025-01-18 11:00] VITALS: RESP 17; O2SAT 95
--- NOTE | 2025-01-18 13:50 | Discharge Summary ---
Discharge Summary Date of Service January 18, 2025 Principal Dx & Hospital Course #1 = Principal Diagnosis (1) Bilateral pneumonia: 54 y/o admitted with bilateral pneumonia. Fairly extensive on chest CTA which was negative for PE or other acute findings # Multifocal pneumonia - was afebrile but hypoxic needing supplemental O2. - WBC normal, hypoxia resolved prior to discharge - treated with ceftriaxone and azithromycin. cefuroxime po on discharge - follow up CXR for resolution recommended in 6-8 weeks # Asthma - with mild exacerbation present on admission Some wheezing on admission. Only uses a rescue inhaler which she needs rarely although did use once in the last week treated with brief steroids, resolved # Acute metabolic encephalopathy due to bilateral pneumonia - resolved Note: he was observed to remain quite sleepy during the hospital course even after resolution of encephalopathy. He was easy to arouse and AOx4 however. I think that his current home medications are causing some sedation and that dose reduction is warranted, if possible. I counseled him on this but he is complex and adjustments would be better handled by his outpatient psychiatrist and neurologist. This does raise the question of whether he had an aspiration pneumonia / pneumonitis especially if he became oversedated at home from medications or medications combined with alcohol, for example. # Seizure disorder History of provoked generalized seizures. 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 Low suspicion for seizure leading to aspiration/pneumonia. did not appear postictal Is on bupropion which can lower seizure threshold, known and follows with neurology. - Switched clonazepam to ativan ~1 year ago. Continued Continue Keppra 500 mg twice daily # migraines Continue verapamil # Depression/OCD/anxiety/ADHD Continue clomipramine 150 mg at bedtime, 50mg BID. - Wellbutrin 150mg BID continued Continue BuSpar - Ativan 2mg TID continued. Not tapered at this time due to regular use and risk of seizure. - positive MDMA on Utox is a false positive related to his meds (bupropion, ADHD meds) # Hypertension Continue verapamil, propranolol # Lumbar facet syndrome Postop pain management, as needed L4/L5/S1 blocks. Last seen by pain management 12/26/2024 - Pain adequately controlled @ admission (2) OCD (obsessive compulsive disorder): (3) ADHD (attention deficit hyperactivity disorder): (4) HTN (hypertension): (5) GERD (gastroesophageal reflux disease): (6) Migraine headache: Notes For Next Care Provider Bilateral pneumonia Recommend repeat CXR in 6-8 weeks for resolution Reduce sedating medications if possible - very sleepy in hospital throughout Medication Changes From Visit Cefuroxime for pneumonia. Completed azithromycin Admission HPI Per Admitting Provider Gustavo is a 54-year-old male with a past medical history of GERD, hypertension, OCD, ADHD, seizure, migraines and degenerative disc disease who presents to the ER for fatigue, global weakness, and concern for left facial droop. On ER evaluation he was found to be hypoxic at 87% on room air. Seen at the bedside with family present. Had shingles shot 1 week ago. Feeling poorly since, attributed this to the vaccination. Has been more short of breath, less coherant, and more short of breath in the last week. Endorses weak all over, denies focal limb/one sided weakness. No dysarthria or aphasia. No vision change. +cough. +productive for yellow/brown sputum. This is new in the last week and not normal for him +wheezing in th elast week. Hx of childhood asthma. uses a rescue inhaler as needed, hasn't needed it recently but did use it once in the last week. no daily inhalers. No seizures since 2005. No longer takes clonazepam. Stopped taking this one year ago. No issues since. Does take ativan 2mg TID everyday. Medical History: Reviewed Medications: Reviewed Surgical History: Reviewed Family history: Reviewed Allergies: Reviewed. Wheezing/dyspnea on lisinopril. Thinks he has an antiobiotic allergy to something, but not sure. +stomach upset. Social History: Chew tobacco, 4 pouches per day. Very rare ETOH use. No recreational drug use. Code Status: Full Code Discharge Exam Last 24h vitals reviewed GEN: was again asleep but aroused easily to voice HEENT: pupils equal, sclerae anicteric, moist MM RESP: normal WOB, CTAB anteriorly and bilateral crackles posteriorly no wheezing - unchanged CV: reg no mrg ABD: soft/nt/nd +BT : no ott SKIN: warm and dry, no generalized rashes NEURO: AOx person, place, and situation. Face symmetric, speech normal, moves 4 ext spontaneously and equally Discharge Plan Discharge Items Patient Disposition: Home - Self-Care Reason For Visit: BILATERAL PNA Discharge Diagnosis: Multifocal pneumonia Condition on Discharge: Fair Activity: Resume your previous activity Non-emergency contact: Primary Care Provider Call non-emergency contact if: you have any medication questions, your symptoms worsen and your temperature is above 101 Follow-up/Referrals: Diana Guevara [Primary Care Provider] - (PLEASE CALL AND SCHEDULE FOLLOW UP FOR 7-10 DAYS) Diet: Regular Addtl Attending Provider Instructions: You were treated for bilateral pneumonia Finish the course of antibiotics You already completed one of the antibiotics (azithromycin) - this will stay active in your body for another week or so Take the other antibiotic cefuroxime for another 7 days If you can hold the esomeprazole (Nexium) for a week, that will help you absorb the antibiotics better Follow up in primary care within 1-2 weeks. Your doctor may want to get a chest x-ray in about 6 weeks to see if things have cleared up It seems like your current medications are sedating you. This can increase the risk of pneumonia and aspiration. Lorazepam, hydroxyzine, gabapentin, tramadol and your seizure medications are all sedating. Talk to your doctors about reducing the doses or tapering off some medications, if possible It was a pleasure taking care of you in the hospital, Alyce Nick MD Pending Studies at Discharge: No Stand-Alone Forms: My [facility] [employer], Smoking Cessation Medications and DC Order Prescriptions: New cefuroxime axetil 500 mg tablet 500 mg PO BID 7 Days Qty: 14 0RF Continued tramadol 50 mg tablet 50 mg PO TID PRN (Reason: Pain) propranolol 60 mg capsule,extended release 24 hr 60 mg PO BID fexofenadine [Allergy Relief (fexofenadine)] 180 mg tablet 180 mg PO HS PRN (Reason: Itching) clomipramine 75 mg capsule 150 mg PO HS verapamil 120 mg capsule,ext rel. pellets 24 hr 120 mg PO DAILY Rx Instructions: UNABLE TO VERIFY THIS MED. albuterol sulfate 90 mcg/actuation HFA aerosol inhaler 2 puff inhalation Q6H PRN (Reason: Shortness Of Breath Or Wheezing) gabapentin 600 mg tablet 600 mg PO TID lorazepam 2 mg tablet 2 mg PO TID hydroxyzine HCl 50 mg tablet 50 mg PO BID sumatriptan succinate 100 mg tablet 100 mg PO DAILY PRN (Reason: Migraine Headache) Rx Instructions: MAY REPEAT IN 2 HRS, IF NEEDED. amlodipine 10 mg tablet 10 mg PO DAILY buspirone 10 mg tablet 10 mg PO BID levetiracetam [Keppra] 500 mg tablet 500 mg PO BID multivitamin Tablet 1 tab PO DAILY magnesium citrate,mag oxide 250 mg capsule 250 mg PO DAILY cholecalciferol (vitamin D3) 50 mcg (2,000 unit) capsule 50 mcg PO DAILY bupropion HCl 100 mg tablet 150 mg PO BID clomipramine 50 mg capsule 50 mg PO BID dextroamphetamine-amphetamine 30 mg tablet 30 mg PO .Q AFTERNOON dextroamphetamine-amphetamine 30 mg capsule,extended release 24hr 30 mg PO QAM ipratropium-albuterol 0.5 mg-3 mg(2.5 mg base)/3 mL Solution For Nebulization 3 ml INHALATION DIRECTED PRN (Reason: Shortness Of Breath Or Wheezing) Held esomeprazole magnesium 40 mg capsule,delayed release(DR/EC) 40 mg PO DAILY Hold Instructions: Resume on 01/25/25. Discharge Orders: Discharge Order (Routine); Ordered 01/18/25 Ordered By: Alyce Nick Admission Data Admit Date/Time: 01/16/25 19:37 Attending Provider: Alyce Nick Admit Provider: Sandoval Baca Primary Care Provider: Diana Guevara Other Providers: Sandoval Baca Other Interventions: Discharge Summary Assessment (RN) Last Done: 01/18/25 13:57 Hospital Stay Data Consultations 01/16/25 18:09 ED Decision to Admit Stat Diagnostic Imagining Performed 01/16/25 15:27 CT head/brain wo con Stat 01/16/25 16:29 CT angio chest PE protocol Stat Chest X-Ray 01/16/25 15:27 Chest radiograph, one view History: AMS Comparison: None Findings: Single AP view of the chest performed. Bibasilar patchy opacities seen. Pleural effusion. No pneumothorax. The cardiomediastinal silhouette is within normal limits. Normal pulmonary vascularity. No evidence for lymphadenopathy. No visualized bony or soft tissue abnormality. Impression: Bibasilar patchy opacities are suspicious for infection Electronically signed by Kirk Zamora 01-16-2025 4:[address] 01/16/25 15:27 Clinical History: Altered mental status. Technique: Axial computed tomography images were obtained of the brain from the vertex to the skull base without intravenous contrast. Findings: There is no sign of intracranial hemorrhage. There is normal moore-white matter differentiation with no sign of acute or old infarction. No midline shift or other form of herniation is identified. There is no hydrocephalus. No obvious mass lesion is seen on this noncontrast examination. There is mild left sphenoid sinus mucosal thickening. The mastoid air cells appear clear Impression: Unremarkable noncontrast CT of the brain Electronically signed by Yuri Fernández 01-16-2025 5:58 PM Chest CTA 01/16/25 16:29 Clinical history: Chest pain Technique: Axial computed tomography images were obtained of the chest after the administration of intravenous contrast according to the CT angiogram protocol Findings: There is no definite sign of pulmonary embolism. Evaluation of some of the peripheral pulmonary arteries is limited by motion artifact and suboptimal contrast opacification There are multifocal alveolar and nodular infiltrates in the bilateral lower lobes and to a lesser extent the right middle lobe and lingula, consistent with pneumonia. There is no pleural effusion or pneumothorax. There is peripheral bronchial is plaque in both lower lobes There are multiple small mediastinal and hilar lymph nodes. There is no overt mediastinal, hilar, or axillary adenopathy. The thoracic aorta appears unremarkable with no sign of aneurysm or dissection. There is no pericardial effusion The spleen is mildly enlarged measuring 14 cm. There is a small hiatal hernia. No fracture is seen. No focal osseous lesion is evident Impression: 1. No definite sign of pulmonary embolism. Evaluation of some of the peripheral pulmonary arteries was suboptimal and small peripheral lower lobe emboli cannot be excluded 2. Bilateral pneumonia 3. Small hiatal hernia 4. Mild splenomegaly ACT 112: Positive. There are findings on this exam that require communication between the performing entity and the patient following Patient Test Result Information Act ([place] ACT 112) guidelines. Electronically signed by Yuri Fernández 01-16-2025 6:02 PM 01/18/25 07:33 01/18/25 07:33 Pending Results Patient Have Any Pending Studies at Discharge: No Discharge Instructions Given to Patient (Per Discharging Provider) You were treated for bilateral pneumonia Finish the course of antibiotics You already completed one of the antibiotics (azithromycin) - this will stay active in your body for another week or so Take the other antibiotic cefuroxime for another 7 days If you can hold the esomeprazole (Nexium) for a week, that will help you absorb the antibiotics better Follow up in primary care within 1-2 weeks. Your doctor may want to get a chest x-ray in about 6 weeks to see if things have cleared up It seems like your current medications are sedating you. This can increase the risk of pneumonia and aspiration. Lorazepam, hydroxyzine, gabapentin, tramadol and your seizure medications are all sedating. Talk to your doctors about reducing the doses or tapering off some medications, if possible It was a pleasure taking care of you in the hospital, Alyce Nick MD Total Time Total Time Spent Total Time Spent (In Minutes): I personally spent: 35 minutes today on clinical care activities including: reviewing chart notes and vital signs discussion with bedside RN, testing for ongoing hypoxia with room air oximetry examining and counseling the patient writing orders writing prescriptions, discharge instructions documentation Coding Level of Care Code 26145 INP/OBS DISCH >30 MIN Diagnoses Bilateral pneumonia J18.9 OCD (obsessive compulsive disorder) F42.9 ADHD (attention deficit hyperactivity disorder) F90.9 HTN (hypertension) I10 GERD (gastroesophageal reflux disease) K21.9 Migraine headache G43.909
[2025-01-18 13:59] VITALS: BP 116/79; PULSE 85
--- NOTE | 2025-01-20 06:46 | Electrocardiogram Report ---
Test Reason : Blood Pressure : */* mmHG Vent. Rate : 83 BPM Atrial Rate : 83 BPM P-R Int : 176 ms QRS Dur : 116 ms QT Int : 384 ms P-R-T Axes : 26 -12 58 degrees QTcB Int : 451 ms Normal sinus rhythm Incomplete left bundle block Borderline ECG When compared with ECG of 09-Jun-2021 15:47, Incomplete left bundle block is now Present Confirmed by Chivo Frias ([id number]) on 01/20/2025 6:46:38 AM Referred By: Diana Guevara Confirmed By: Chivo Frias
[2025-01-20 14:02] LABS: MDA negative; MDEA negative; MDMA (Ecstasy) Urine, Confirm negative
== END 2025-01-18 14:10 | disposition home or self-care (01) | DRG 193 ==
LOC: ED 15:00 → SUATTDRO 19:37 → 2W 19:37